=== PATIENT | male | born 1960 | race Caucasian/White ===

== ENCOUNTER 2019-03-09 09:01 | Inpatient (IN) ==
--- NOTE | 2019-03-02 13:43 | Anesthesiology Consultation ---
Date of Service March 02, 2019 Assessment & Plan (1) Encounter for pre-operative examination: Chart Review Chart Review: Acceptable Risk for Surgery and Patient NOT seen in Pre Admission Testing History Surgery Operation Date: 03/09/19 11:10 Proposed Procedures p Robotic Right Video Assisted Thoracoscopy with Pleurectomy - Filemon Moraes MD, FACS Height/Weight Height: 5 ft 9 in Weight: 97.522 kg Allergies Allergy/AdvReac Type Severity Reaction Status Date / Time adhesive Allergy Unknown EKG Verified 02/23/19 13:40 MONITOR PADS-RED RASH ITCHY meperidine Allergy Unknown nausea and Verified 02/23/19 13:40 vomiting albuterol AdvReac Unknown TACHYCARDIA Verified 02/23/19 13:40 Medications Home Medications Medication Instructions Recorded Confirmed Last Taken aspirin 81 mg PO QAM 02/23/19 02/23/19 Unknown atenolol 50 mg PO QAM 02/23/19 02/23/19 Unknown flecainide 50 mg PO Q12H 02/23/19 02/23/19 Unknown gabapentin 800 mg PO TID 02/23/19 02/23/19 Unknown ibuprofen 800 mg PO TID PRN 02/23/19 02/23/19 Unknown levalbuterol HCl 1.25 mg INHALATION TID PRN 02/23/19 02/23/19 Unknown levalbuterol tartrate [Xopenex HFA] 1 puff INHALATION Q4H PRN 02/23/19 02/23/19 Unknown montelukast [Singulair] 10 mg PO QAM 02/23/19 02/23/19 Unknown tiotropium bromide [Spiriva 1 puff INHALATION QPM 02/23/19 02/23/19 Unknown Respimat] Past Medical History Medical History Atrial fibrillation DX YEARS AGO - ON ASA, FLECAINIDE - FOLLOWS W/ DR. 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 History of bronchoscopy History of cervical spinal surgery X 2 - NO ROM RESTRICTIONS PER PT History of colonoscopy History of esophagogastroduodenoscopy (EGD) History of right knee surgery History of shoulder surgery BL History of spinal surgery LUMBAR SPINE X 2 History of surgical removal of ganglion cyst History of tonsillectomy Nausea and vomiting after administration of anesthetic agent S/P plication of diaphragm Status post placement of implantable loop recorder Past Anesthesia History Difficult Airway (H/O GLIDESCOPE) 05/07/15 L shoulder scope = GLIDESCOPE #4, ETT 7.5, grade view I. Cords clear, atraumatic x 1 attempt. Social History Smoking Status: Never smoker Do You Dip or Chew Tobacco: No Hx Alcohol Use: Yes Alcohol type: beer alcohol intake frequency: holidays/special occasions only Hx Substance Use: No substance use type: does not use Testing Laboratory Results 01/28/19 WBC: 5.5 H/H: 15.5/45.5 PLATELETS: 277 SODIUM: 138 POTASSIUM: 4.1 CHLORIDE: 105 CO2: 27 BUN: 13 CREATININE: 95 GLUCOSE: 95 PT: 9.3 PTT: 28 INR: 0.97 UA: negative Electrocardiogram Date: 07/08/18 Sinus rhythm at 74bpm. Intra-atrial conduction delay. *artifact in part of recording. Patient had subsequent echo and stress, see below. Chest X-Ray Date: 01/28/19 Interval development of wedge-shaped abnormality lower right hemithorax. CT follow-up suggested.* *see CT below Echocardiogram Date: 08/09/18 EF: 55-60% Mild left ventricular hypertrophy. Normal wall motion. Normal left ventricular systolic function. Mild mitral regurgitation, mild tricuspid regurgitation, trace pulmonic insufficiency. Borderline pulmonary hypertension. There is normal left ventricular diastolic function. Stress Test Date: 02/25/19 Type: nuclear Based upon EKG criteria, this test is negative. Based upon the nuclear imaging findings there is no evidence of myocardial ischemia or infarction. Study is normal. It is comparable to previous studies. Cardiac clearance for this patient is a low to moderate cardiac risk. Other Testing 01/28/[address] No CT evidence of pulmonary embolism. Nodular thickening of the pleura in the lower right chest along with pleural effusion. Pleural-based malignancy cannot be ruled out. Chronic areas of nodular pleural-based calcification noted along right hemidiaphragm.
[~2019-03-09 09:01] MED LIST: LR 15ML/HR IV SCH
[2019-03-09] MEDS ORDERED: fentaNYL citrate 100 MCG/2 ML VIAL ONE ×3 (10:23→15:33)
[2019-03-09] MEDS ORDERED: MIDAZOLAM HCL 1 MG/ML 2ML VIAL ONE (10:23)
[2019-03-09] MEDS ORDERED: SCOPOLAMINE 1.5 MG TDSY TD ONE (11:15)
[2019-03-09] MEDS ORDERED: SCOPOLAMINE 1.5 MG TDSY ONE (11:17)
[2019-03-09] MEDS ORDERED: ePHEDrine sulfate 50 MG/ML AMP IV PRN (11:17)
[2019-03-09] MEDS ORDERED: ATROPINE SULFATE 0.1 MG/ML 10ML SYR IV PRN (11:17)
[2019-03-09] MEDS ORDERED: ONDANSETRON INJ 2 MG/ML 2 ML VIAL IV PRN ×2 (11:17→17:19)
--- NOTE | 2019-03-09 11:29 | History & Physical Bridge Note ---
Date of Service March 09, 2019 History & Physical Bridge Note I have examined the patient, reviewed the History & Physical and in the interval since the performance of the History & Physical I have noted the following changes of clinical significance: no changes noted
[2019-03-09] MEDS ORDERED: SODIUM CHLORIDE 0.9% PF 50 ML VIAL ONE (11:40)
[2019-03-09] MEDS ORDERED: BUPIVACAINE 0.5 % 5 MG/1 ML MPF 30ML VIAL ONE (11:40)
[2019-03-09] MEDS ORDERED: BUPIVACAINE LIPOSOME 1.3% 266 MG/20 ML VIAL ONE (11:41)
[2019-03-09] MEDS ORDERED: CEFAZOLIN 250 MG/ML 1 GM VIAL ONE (11:42)
[2019-03-09] MEDS ORDERED: ROCURONIUM BROMIDE 10 MG/ML 5 ML VIAL ONE ×7 (11:42→14:34)
[2019-03-09] MEDS ORDERED: LIDOCAINE HCL 2% 2 ML VIAL/AMP(20MG/ML) INFIL ONE (11:42)
[2019-03-09] MEDS ORDERED: PROPOFOL IV EMULSION 10 MG/ML 20 ML VIAL IV ONE (11:42)
[2019-03-09] MEDS ORDERED: CEFAZOLIN 2000MG 2,000 MG/15 ML SYR IV ONE (13:18)
[2019-03-09] MEDS ORDERED: PHENYLEPHRINE HCL 10 MG/ML VIAL ONE (13:19)
[2019-03-09] MEDS ORDERED: PHENYLEPHRINE 100MCG/ML 5ML SYR ONE (13:19)
[2019-03-09] MEDS ORDERED: ONDANSETRON INJ 2 MG/ML 2 ML VIAL ONE ×2 (13:19→14:57)
[2019-03-09] MEDS ORDERED: DEXAMETHASONE SOD INJ 4 MG/ML VIAL ONE (13:19)
[2019-03-09] MEDS ORDERED: NEOSTIGMINE METHYLSULFATE 5 MG/5 ML SYR ONE (14:34)
[2019-03-09] MEDS ORDERED: GLYCOPYRROLATE 0.2 MG/ML VIAL ONE (14:34)
--- NOTE | 2019-03-09 15:19 | Post Operative Brief Note ---
Immediate Post Op Note v1 Date of Surgery March 09, 2019 Pre & Post Diagnosis Operation Date: 03/09/19 11:10 Pre-Op Diagnosis: Right Pleural Thickening Post-Op Diagnosis: Right Pleural Thickening - No apparent malignancy Procedure Operation Date: 03/09/19 11:10 Actual Procedures p Right Video Assisted Thoracoscopy with Pleurectomy Wedge biopsy right Lower Lobe(Right) - Filemon Moraes MD, FACS Surgeon Filemon Moraes MD, FACS Plastic Surgery Specialist [facility] Estimated Blood Loss 150 Findings Consistent with Post-Op Diagnosis Drains Chest Tube and Ivy Catheter
[2019-03-09] MEDS ORDERED: METOCLOPRAMIDE HCL INJ 5 MG/ML 2 ML VIAL IV ONE (15:40)
--- NOTE | 2019-03-09 15:55 | XRay Report ---
XR chest 1V portable HISTORY: 58 years-old Male pleurectomy postoperative changes of the right lung. COMPARISON: CTA of the chest 01/28/2019 TECHNIQUE: Portable AP view of the chest FINDINGS: Cardiac silhouette is enlarged, unchanged. A loop recorder device projects over the left chest. Pulmo nary vascular congestion. Suggestion of trace pleural effusions with bibasilar opacities. A right-greg ed chest tube terminates adjacent to the right lung apex. A small right-sided apical pneumothorax is noted, pleural separation of 1.2 cm. Degenerative changes of the shoulders and spine. IMPRESSION: 1. Small right apical pneumothorax with right-sided chest tube terminating adjacent to the right lung apex. 2. Cardiomegaly with pulmonary vascular congestion. 3. Suggestion of trace pleural effusions with bibasilar opacities. The above report was generated using voice recognition software. It may contain grammatical, syntax o r spelling errors. Electronically signed by: Gilles Valentin M.D. 03/09/2019 3:53 PM
[2019-03-09] MEDS: fentaNYL citrate 100 MCG/2 ML VIAL IV PRN ×2 (16:00→16:15)
--- NOTE | 2019-03-09 16:07 | Anesthesiology Progress Note ---
Date of Service March 09, 2019 Anesthesia Post Procedure Vital Signs Vital Signs: Temp Pulse Pulse Resp BP Pulse Ox 03/09/19 15:37 36.0 C L 66 18 99/58 L 97 03/09/19 09:34 36.2 C L 70 18 136/78 97 Pain Intensity Right Chest: Pain Intensity: 3 Transfer of Care Handoff Completed per policy Notes Mental Status: alert / awake / arousable Patient Amnestic to Procedure: Yes Nausea / Vomiting: adequately controlled Pain: adequately controlled Airway Patency, RR, SpO2: stable & adequate BP & HR: stable & adequate Hydration State: stable & adequate Anesthetic Complications: no major complications apparent
[2019-03-09] MEDS ORDERED: LEVALBUTEROL TARTRATE 15 GM HFA.AER.AD INH PRN (17:19)
[2019-03-09] MEDS ORDERED: MoRPHine SULFATE 2 MG/ML CARP IV PRN (17:19)
[2019-03-09] MEDS ORDERED: LEVALBUTEROL HCL 1.25 MG/3 ML NEB INH PRN (17:19)
[2019-03-09] MEDS: CHECK SCOPOLAMINE PATCH PLACEMENT SCH ×2 (17:52→23:50)
[2019-03-09] MEDS: D5W AND 1/2NSS 1,000 ML IV SCH (17:52)
[2019-03-09] MEDS: ACETAMINOPHEN 1,000 MG/100 ML VIAL IV SCH (17:53)
[2019-03-09] MEDS: KETOROLAC TROMETHAMINE 15 MG/ML VIAL IV PRN ×2 (17:53→23:51)
[2019-03-09 18:19] LABS: Creatinine Clr Calc Pharmacy 94.3 ml/min; Est GFR (African American) 97.6; Est GFR (Non-African American) 84.2
[2019-03-09 18:25] LABS: Prothrombin Time 10.3 Seconds (9.0-12.0)
[2019-03-09] MEDS: OXYCODONE HCL IR 5 MG TAB (IMMEDIATE RELEASE) PO PRN (20:22)
[2019-03-09] MEDS ORDERED: COUGH DROP (SUGAR FREE) LOZ 24 LOZ/1 BOX BUCCAL PRN (20:26)
--- NOTE | 2019-03-09 20:27 | Operative Report ---
DATE OF OPERATION: 03/09/2019 PREOPERATIVE DIAGNOSIS: Pleural thickening with chest pain suspicious for malignancy. POSTOPERATIVE DIAGNOSIS: No apparent malignancy. PROCEDURE: 1. Right thoracoscopy with partial pleurectomy and lung biopsy. 2. Extensive takedown of adhesions. ANESTHESIA: General anesthesia, endotracheal intubation. SURGEON: Filemon Moraes MD. SUGAR SAMPLER: DHEERAJ Willson (Mr. Maynard was present for the entire case and was instrumental holding the camera). SPECIFICS OF PROCEDURE AND FINDINGS: Michael James is a very nice 58-year-old male actually has a fairly significant history for being such a young man. He had a paralyzed right hemidiaphragm from the cervical neck surgery and also had a winged scapula on the right. His paralyzed diaphragm was repaired at [facility] years ago via right thoracotomy. He also has a history of atrial fibrillation, chronic obstructive pulmonary disease, degenerative disk disease, osteoarthritis, and obesity. The patient presented to me because he had increased pain in his right chest. A CT scan showed thickening which is a bit unusual and did not appear to be fluid. The patient seen and evaluated by Colt Lennon from the pulmonary division and he was worried about this and I agree with him. The patient did have asbestos exposure. 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 The patient presents with this rather subacute onset of pain and was very concerned "that I might have mesothelioma." I did not think a pleural biopsy was going to be helpful or fruitful. I felt that by a thoracoscopic biopsy of his pleura be indicated. We discussed doing this with a robot. However, when we got in there and he had such adhesions. We went ahead and proceeded thoracoscopically. He tolerated it well with very little in the way of blood loss. We did multiple biopsies, did a partial pleurectomy. We also did a lung biopsy of an area of the lung attached to the chest wall. We took down everything all the way down to the diaphragm and I really did not see anything that looked like a mesothelioma. Frozen section showed fibrotic material. We did send off a fair amount of tissue. He tolerated it well, was extubated in the room with essentially no air leak. DESCRIPTION OF PROCEDURE: The patient brought to operating room and laid in supine position. General anesthesia induced, endotracheal intubation performed with a double lumen tube. The patient was placed in left lateral decubitus position, right chest prepped and draped in usual sterile fashion. I initially planned to use a robot, bringing up from caudal so we could work along the diaphragm. However, once we got in and I was looking at the prior thoracotomy incision, I felt we would go in and see what we had. A 5 mm scope was placed in about the seventh interspace anterior just above the costal margin and we got into the area well. I then could see that we did have adhesions inferiorly where the pleura was thickened, which did not surprise me; however, we had enough area to put our ports. I put a 12 mm camera port close to the mid axillary line. This was about the seventh interspace. I also put a 5 mm port posterior to the scapula to get into the space. We then meticulously took down adhesions with the hook cautery and we managed to get this down, but we were working inferiorly. We continued going until we had taken this entire area down. We did do an Exparel block. 266 mg of Exparel and 20 mL of solution were mixed with 30 mL of 0.5% bupivacaine and 250 mL of normal saline injected into each of the 3 port sites. We made a fourth 5 mm port site inferiorly after we had freed up much of the adhesions so that we would have better visualization. We then used this Exparel to do a block from the 2nd to the 11th rib by injecting into the intercostal spaces. The pleura was thickened and we did take down a fair amount of it and sent it off to the lab. We performed a partial pleurectomy. Some of it was still stuck to the lung and I did a wedge resection of a portion of this with a stapler. I then irrigated out the chest and I really did not have much in the way of bleeding. We did get some bleeding along the chest wall which was addressed with the Aquamantys. He had multiple small air leaks from taking the lung down. Diaphragm was quite sensitive to cautery and contracted quite vigorously when stimulated. We took down all the adhesions and then irrigated out the chest with warm saline and inspected for air leaks as well as any bleeding. We suctioned this out and I was quite pleased. Lung expanded nicely. We placed a 24-Green[place]ic chest tube through the anterior most port directed towards the apex and sutured in place with heavy silk suture. The 12 mm camera port was closed with a 0 Vicryl and for the muscle layers. 4-0 Monocryl was used to close all the incisions and a heavy silk was used to anchor the chest tube in place. The patient tolerated well, was extubated in the room. I attest to the content of the Intraoperative Record and any orders documented therein. Any exception s are noted below.
[2019-03-09] MEDS ORDERED: COUGH DROP (SUGAR FREE) LOZ 24 LOZ/1 BOX BUCCAL ONE (20:36)
[2019-03-09] MEDS ORDERED: TIOTROPIUM BROMIDE 5 PUFF/90 MCG INH INH SCH (21:00)
[2019-03-09] MEDS: FLECAINIDE ACETATE 100 MG TABLET PO SCH (21:33)
[2019-03-09] MEDS: DOCUSATE SODIUM 100 MG CAP PO SCH (21:35)
[2019-03-09] MEDS: GABAPENTIN 800 MG TAB PO SCH (21:42)
[2019-03-09] MEDS: METOCLOPRAMIDE HCL INJ 5 MG/ML 2 ML VIAL IV SCH (23:50)
[2019-03-10] MEDS: ACETAMINOPHEN 1,000 MG/100 ML VIAL IV SCH ×2 (02:05→10:19)
[2019-03-10] MEDS: D5W AND 1/2NSS 1,000 ML IV SCH (03:06)
[2019-03-10 06:03] LABS: Eosinophils # (auto) 0.01 K/uL (0-0.5); Eosinophils % (auto) 0.1 %; Hematocrit (blood only) 36.7 % (42-52); Hemoglobin 12.2 g/dL (14.0-18.0); Immature Granulocytes # (auto) 0.03 K/uL (0.00-0.02); Immature Granulocytes % (auto) 0.3 %; Lymphocytes # (auto) 1.22 K/uL (1.2-3.4); Lymphocytes % (auto) 10.3 %; Mean Corpuscular Volume 92.2 fL (80-100); Mean Platelet Volume 9.3 fL (7.4-10.4); Monocytes # (auto) 1.11 K/uL (0.11-0.59); Monocytes % (auto) 9.4 %; Neutrophils # (auto) 9.45 K/uL (1.4-6.5); Neutrophils % (auto) 79.9 %; Platelet Count 208 K/uL (130-400); RDW Coefficient of Variation 12.6 % (11.5-14.5); RDW Standard Deviation 42.8 fL (36.4-46.3); Red Blood Count 3.98 M/uL (4.7-6.1); White Blood Count 11.82 K/uL (4.8-10.8)
[2019-03-10 06:04] LABS: Mean Corpuscular Hgb Conc 33.2 g/dL (32-36)
[2019-03-10] MEDS: KETOROLAC TROMETHAMINE 15 MG/ML VIAL IV PRN (06:16)
[2019-03-10 06:27] LABS: BUN Creatinine Ratio 12.9 (10-20); Calcium 7.4 mg/dl (8.5-10.1); Creatinine Clr Calc Pharmacy 81.9 ml/min; Est GFR (African American) 82.3; Potassium 4.5 mmol/L (3.5-5.1)
--- NOTE | 2019-03-10 07:09 | XRay Report ---
SINGLE VIEW CHEST CLINICAL HISTORY: Status post right-sided pleurectomy. FINDINGS: An AP, portable, upright chest radiograph is compared to study dated 03/09/2019 and correlat ed with chest CT dated 01/28/2019. The examination is significantly degraded by portable technique and apical lordotic positioning. An electronic device projects over the left lower chest. The heart is e nlarged. The pulmonary vasculature is noncongested. A right apical chest tube is unchanged in positio n. A trace right apical pneumothorax persists. There is volume loss in the right lung. Pleural fluid is seen in the right lung base. The left lung appears clear. The bony thorax is grossly intact. Sub cutaneous emphysema is noted along the right chest wall. IMPRESSION: 1. A right apical chest tube is unchanged in position. A trace right apical pneumothorax persists. 2. Cardiomegaly without radiographic evidence of congestive failure. 3. Pleural fluid is again seen at the right lung base. Electronically signed by: Kulwinder Smith M.D. 03/10/2019 7:08 AM
--- NOTE | 2019-03-10 07:28 | Progress Note ---
DATE: 03/10/2019 Mr. James is 1 day status post a right pleurectomy and lung biopsy. He does not have an air leak. He has drained very little from his chest tube. He does have some mild chest pain. Not voided in the last several hours. We are going to get him up ambulating, stop his IV and make sure that he is voiding well and taking p.o. and I will probably discharge him later today.
[2019-03-10] MEDS: CHECK SCOPOLAMINE PATCH PLACEMENT SCH (08:13)
[2019-03-10] MEDS: FLECAINIDE ACETATE 100 MG TABLET PO SCH (08:16)
[2019-03-10] MEDS: METOCLOPRAMIDE HCL INJ 5 MG/ML 2 ML VIAL IV SCH (08:17)
--- NOTE | 2019-03-10 08:24 | Anesthesiology Progress Note ---
Date of Service March 10, 2019 Anesthesia Post Procedure Vital Signs Vital Signs: Temp Pulse Pulse Pulse Pulse Resp BP 03/10/19 05:00 37.0 C 73 14 03/10/19 03:00 37.1 C 70 14 03/10/19 01:00 36.9 C 71 14 03/09/19 23:00 37.0 C 75 14 03/09/19 21:17 37 C 87 20 03/09/19 20:10 37 C 84 16 03/09/19 19:02 36.8 C 86 18 03/09/19 18:16 36.8 C 92 H 16 03/09/19 17:37 36.3 C L 80 16 03/09/19 17:00 37.3 C 80 16 03/09/19 16:40 67 17 95/59 L 03/09/19 16:35 69 16 93/55 L 03/09/19 16:31 85 15 100/62 03/09/19 16:30 37.0 C 83 18 03/09/19 16:25 65 16 101/58 L 03/09/19 16:22 64 16 98/62 L 03/09/19 16:20 77 19 03/09/19 16:16 72 17 103/67 03/09/19 16:15 75 23 03/09/19 16:11 66 18 93/62 L 03/09/19 16:10 76 16 03/09/19 16:06 72 15 86/56 L 03/09/19 16:05 71 15 03/09/19 16:00 70 23 101/52 L 03/09/19 15:55 65 17 103/60 03/09/19 15:50 61 20 106/61 03/09/19 15:45 64 16 117/62 03/09/19 15:41 66 12 94/61 L 03/09/19 15:40 65 17 03/09/19 15:38 64 17 99/58 L 03/09/19 15:37 36.0 C L 68 66 13 82/61 L 03/09/19 09:34 36.2 C L 70 18 BP Pulse Ox Pulse Ox 03/10/19 05:00 94/59 L 93 03/10/19 03:00 88/53 L 93 03/10/19 01:00 92/56 L 93 03/09/19 23:00 91/55 L 94 07/10/19 21:17 100/65 96 03/09/19 20:10 94/57 L 94 94 03/09/19 19:02 98/61 L 97 03/09/19 18:16 89/55 L 95 03/09/19 17:37 94/61 L 91 03/09/19 17:00 93/59 L 91 03/09/19 16:40 90 03/09/19 16:35 93 03/09/19 16:31 95 03/09/19 16:30 96 03/09/19 16:25 95 03/09/19 16:22 94 03/09/19 16:20 92 03/09/19 16:16 97 03/09/19 16:15 95 03/09/19 16:11 93 03/09/19 16:10 95 03/09/19 16:06 99 03/09/19 16:05 99 03/09/19 16:00 99 03/09/19 15:55 99 03/09/19 15:50 99 03/09/19 15:45 97 03/09/19 15:41 100 03/09/19 15:40 100 03/09/19 15:38 99 03/09/19 15:37 99/58 L 99 03/09/19 09:34 136/78 97 Notes Mental Status: alert / awake / arousable and participated in evaluation Nausea / Vomiting: adequately controlled Pain: adequately controlled Airway Patency, RR, SpO2: stable & adequate BP & HR: stable & adequate Hydration State: stable & adequate
[2019-03-10] MEDS: DOCUSATE SODIUM 100 MG CAP PO SCH (08:32)
[2019-03-10] MEDS: GABAPENTIN 800 MG TAB PO SCH ×2 (08:32→13:14)
[2019-03-10] MEDS: OXYCODONE HCL IR 5 MG TAB (IMMEDIATE RELEASE) PO PRN (08:35)
[2019-03-10] MEDS ORDERED: ENOXAPARIN INJ 40 MG/0.4 ML SYR SQ SCH (09:00)
[2019-03-10] MEDS ORDERED: ATENOLOL 50 MG TABLET PO SCH (09:00)
[2019-03-10] MEDS ORDERED: ASPIRIN 81 MG ECTAB PO SCH (09:00)
[2019-03-10] MEDS ORDERED: MONTELUKAST SODIUM 10 MG TABLET PO SCH (09:00)
[2019-03-10 09:01] VITALS: TEMP 98.1; O2SAT 97
[2019-03-10 14:25] VITALS: PULSE 87
[2019-03-10 14:43] VITALS: BP 96/60
--- NOTE | 2019-03-11 01:47 | Discharge Summary ---
DISCHARGE DIAGNOSES: 1. Pleural thickening of unknown etiology. 2. Status post exposure to asbestos. 3. Status post diaphragmatic plication on the right side. 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 This was done via thoracotomy. The patient is followed by Colt Lennon and it developed acute pleuritic type right-sided chest pain without evidence of infection. He underwent a CT scan and was noted to have pleural thickening which was quite concerning. 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 After much discussion, we elected to proceed with a pleurectomy for diagnosis. On 03/09/2019, the patient underwent an uncomplicated right thoracoscopy. He had marked adhesions and we took these down. I planned initially to use a robot in this, but the patient's adhesions were such that, and the location along the diaphragm made it more difficult. For this reason, I did thoracoscopically. We had large areas of the thickened pleura that we removed; however, did not look ominous to me. Frozen section showed reactive fibrotic tissue with no evidence of malignancy. We sent off much more. Also did a wedge resection of the right lower lobe lung mass. The patient responded quite well to this. We used an Exparel block and he had excellent pain control. He had no air leak postoperatively. His x-ray looked good. The following morning, there was no air leak. His chest x-ray showed full expansion of the lung with no pleural effusion. His chest tube drained very little. On postop day #1, I removed his chest tube. He is ambulating in the hallway and tolerating a regular diet. He was discharged home on postop day 1 with some tramadol for pain. I will see him back next week to go over the final pathology. He looked quite good upon discharge.
== END 2019-03-10 15:10 | disposition home or self-care (01) | DRG 168 ==
LOC: ASU 09:01 → 3N 15:32

== ENCOUNTER 2021-11-05 05:09 | Observation (INO) ==
--- NOTE | 2021-10-30 13:27 | History & Physical Report ---
Date of Service October 30, 2021 date of surgery: 11/05/21 Procedure: Left Shoulder Tournier Resurfacing vs total shoulder replacement Surgeon: Varun Henderson Assessment & Plan (1) Arthritis of left shoulder region: Plan: Further care discussed with patient and at this point in time has failed conservative measures and would like to proceed with surgical intervention. Plan on discharge will be home with home health physical therapy. DVT prophylaxis with TEDs, SCDs and will also place on aspirin 81 mg p.o. b.i.d. for a month postop. Patient will have follow up appointment in our office two weeks post op for staple/suture removal and re-evaluation. Patient otherwise has no other questions or concerns. The risks and benefits have been discussed including, but not limited to, risk of infection, nerve injury, stiffness, loss of motion, failure to improve, etc. Reasonable outcomes and options of treatment were discussed. An explanation of appropriate alternatives to the procedure that may be advantageous were discussed and their risks and benefits, as well as the risks and benefits of not proceeding with treatment. I offered to answer any additional inquiries concerning the treatment involved. All the patient's questions were answered. The patient is agreeable, understanding of the treatment plan and alternatives, and wishes to proceed with the treatment plan. History of Present Illness Chief Complaint: left shoulder pain Primary Care Provider: Alvaro Rodriguez is a 61 year old male who complains of left shoulder pain, presents for pre-op evaluation. He complains of pain, decreased range of motion and stiffness in his left shoulder. Currently the patient states that the symptoms are moderate-severe and rated as 8/10. The pain is described as aching, sharp and throbbing. The symptoms are aggravated by lifting and daily activities, pain wakes him at night. Prior NSAIDs include IBU and Aleve. he recently had visco sample without relief. he also had prior arthroscopic rotator cuff repair in 2015. Allergies Allergy/AdvReac Type Severity Reaction Status Date / Time adhesive Allergy Unknown EKG Verified 05/16/21 08:42 MONITOR PADS-RED RASH ITCHY,BLISTERS meperidine Allergy Unknown nausea and Verified 05/16/21 08:42 vomiting albuterol AdvReac Unknown TACHYCARDIA Verified 05/16/21 08:42 Home Medications Medication Instructions Recorded Confirmed Type aspirin 81 mg tablet,delayed 81 mg PO QAM 02/23/19 05/16/21 History release atenolol 50 mg tablet 50 mg PO QAM 02/23/19 05/16/21 History flecainide 50 mg tablet 50 mg PO Q12H 02/23/19 05/16/21 History gabapentin 800 mg tablet 800 mg PO TID 02/23/19 05/16/21 History ibuprofen 800 mg tablet 800 mg PO TID PRN 02/23/19 05/16/21 History levalbuterol HCl 1.25 mg/3 mL 1.25 mg INHALATION TID PRN 02/23/19 05/16/21 History solution for nebulization tiotropium bromide 2.5 1 puff INHALATION QPM #4 g 05/08/20 05/16/21 Rx mcg/actuation mist for inhalation (Spiriva Respimat) Incentive Spirometer #1 ea 04/11/21 04/11/21 Rx Past Med/Surg History Medical History Atrial fibrillation DX YEARS AGO - NO ISSUES X YEARS- HAD LOOP RECORDER PLACED AND SINCE REMOVED- NO A FIB NOTED- ON ASA, FLECAINIDE - FOLLOWS W/ DR. 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 History of bronchoscopy History of cervical spinal surgery X 2 - NO ROM RESTRICTIONS PER PT 2003, 2012 History of colonoscopy History of esophagogastroduodenoscopy (EGD) History of hand surgery (~1995) BL cyst removal History of hand surgery Tendon repair of left hand History of lung surgery FIBROUS TUMOR-03/2019?-RIGHT SIDE History of right knee surgery (~1988) History of shoulder surgery R/L right 1989, left 2016 History of spinal surgery LUMBAR SPINE X 2 2011, 2013 History of surgical removal of ganglion cyst History of tonsillectomy (~1966) Lipoma REMOVAL OF Nausea and vomiting after administration of anesthetic agent S/P plication of diaphragm (~10/2008) [facility] Status post placement of implantable loop recorder AND REMOVAL Family History Father Family hx of colon cancer Heart disease Mother Stroke Heart disease Social History Smoking Status: Never smoker Second Hand Exposure: No; Hx Alcohol Use: Yes Alcohol type: beer Hx Substance Use: No Preferred Language: Turkmen Communication Ability: Effective Pens And Pencils Dipper Required: No Beliefs That Will Affect Care: None marital status: Current Living Situation: Spouse and Family current occupational status: 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 Safe at Home: Yes Assistive Devices: Walker Review of Systems Review of Systems: All systems reviewed & are unremarkable except as noted in HPI & below Constitutional: no fever, no chills and no sweats Respiratory: no cough and no dyspnea Cardiovascular: no chest pain, no dyspnea and no orthopnea Gastrointestinal: no abdominal pain, no nausea and no vomiting Musculoskeletal: as per Subjective / HPI Physical Exam Constitutional: WD/WN, vitals as above no acute distress Respiratory: normal respiratory effort, lungs clear to auscultation no respiratory distress, no labored breathing and does not use accessory muscles Cardiovascular: RRR, no murmur, no edema Gastrointestinal (Abdomen): normal bowel sounds, soft, nontender, no hepatosplenomegaly Musculoskeletal: Left Shoulder Physical Exam there is no ecchymosis or erythema noted, positive crepitation with active motion, Tenderness anterior aspect shoulder, subacromial space and the AC joint. Belly press - Positive. Rodríguez Positive. Cross Body Positive. Neer's - positive. Strength tests - External rotation 4/5, Supraspinatus 4/5 no atrophy Left shoulder ROM Active ROM - Flexion: 120 degrees, Ext Rot 90 Flex: 30 degrees, Abduction: 45 degrees, Factors: pain, Description: Pain with ROM. Passive ROM - Flexion 170 degrees, ER at 90 de degrees, pain with end range passive ROM. Neurovascular- Radial pulse palpable, radial/median/ulnar nerves intact. Elbow- full painless range of motion, no tenderness. Results & Data Results & Data ([place]) Diagnostic Findings left shoulder series showing degenerative changes noted to the left glenohumeral joint. joint space narrowing and osteophytes present. no acute bony pathology.
--- NOTE | 2021-11-01 14:16 | Anesthesiology Consultation ---
Date of Service November 01, 2021 Assessment & Plan (1) Encounter for pre-operative examination: Chart Review Chart Review: Acceptable Risk for Surgery (pending preop Covid testing results ) and Patient NOT seen in Pre Admission Testing Difficult intubation (see VATS procedure below on 03/09/19) Does have SOB/anxiety with laying flat on back- hx of phrenic nerve damage nursing assessment 10/31/21, patient denies any recent travel. No known Covid positive contacts or Covid related symptoms. No known Covid infection in the past 90 days. Pt is fully vaccinated for Covid. Preop Covid testing 11/01/21= results pending Per cardio surgical risk note 05/30/21=Pt is"low to intermediate cardiac risk." Last seen by cardiology 05/09/2021= patient seen for follow-up visit. Describes nonprogressive mild to moderate dyspneanoticed years ago. Palpitations rare. Continue current medications as prescribed. Doing well from a cardiac standpoint. No new or worsening symptoms. Follows with pulmonology for history of Covid, asbestos exposure and hemidiaphragmatic fundoplication. Will order echo at next visit. Pt seen by PCP 05/28/21=Pt seen for preop for left shoulder surgery. History of paralyzed right diaphragm following neck surgery. Brief history of A. fib 8 years agonone since that time. Still gets shortness of breath and congestion in the AM but able to walk on level and can do 1-2 flights of stairs with mild dyspnea. Patient was recently seen by cardiology and pulmonology. "Medically stable. Moderate increased risk due to restrictive lung disease and PAF."Has significant restrictive lung disease, discussed pulmonary toilet postop. Would watch rhythm periop for a fib. Last seen by pulmonary 04/08/2021= seen for follow-up on cough, COPD, paralyzed diaphragm. "At this time he is stable. He is not having any difficulty with his breathing. He does have a history of a paralyzed hemidiaphragm with plication. Became paralyzed with a thoracic back procedure. He did have a plication done and has been doing well for the most part since. For now he is to continue his medications as they are." Right VATS with pleurectomy 03/09/19= Done under [place]. smooth IV induction. EZ mask. DVL with Glidescope Grade IV view, unable to pass IAN. DVL x 1 with MAC 3, Grade 1 view unable to pass IAN. Pt intubated with single lumen 8.0CH to ventilate. BECKER agent on. Tube exchanger used and unable to pass IAN. Pt intubated again with single lumen and bougie used to pass IAN successfully into trachea. History Surgery Operation Date: 11/05/21 09:30 Proposed Procedures p Left Shoulder Tournier Resurfacing vs - Varun Henderson DO s Hemiarthroplasty - Varun Henderson DO Height/Weight Height: 5 ft 9 in Weight: 97.069 kg Allergies Allergy/AdvReac Type Severity Reaction Status Date / Time adhesive Allergy Unknown EKG Verified 10/31/21 10:26 MONITOR PADS-RED RASH ITCHY,BLISTERS meperidine Allergy Unknown nausea and Verified 10/31/21 10:26 vomiting albuterol AdvReac Unknown TACHYCARDIA Verified 10/31/21 10:26 Medications Home Medications Medication Instructions Recorded Confirmed Last Taken aspirin 81 mg tablet,delayed 81 mg PO QAM 02/23/19 10/31/21 03/04/19 release atenolol 50 mg tablet 50 mg PO QAM 02/23/19 10/31/21 03/08/19 17:00 flecainide 50 mg tablet 50 mg PO Q12H 02/23/19 10/31/21 03/09/19 08:00 gabapentin 800 mg tablet 800 mg PO TID 02/23/19 10/31/21 03/09/19 08:00 ibuprofen 800 mg tablet 800 mg PO TID PRN 02/23/19 10/31/21 03/06/19 levalbuterol HCl 1.25 mg/3 mL 1.25 mg INHALATION TID PRN 02/23/19 10/31/21 03/04/19 solution for nebulization tiotropium bromide 2.5 1 puff INHALATION QPM #4 g 05/08/20 10/31/21 Unknown mcg/actuation mist for inhalation (Spiriva Respimat) Incentive Spirometer #1 ea 04/11/21 04/11/21 Unknown Past Medical History Medical History Atrial fibrillation DX YEARS AGO - NO ISSUES X YEARS- HAD LOOP RECORDER PLACED AND SINCE REMOVED- NO A FIB NOTED- ON ASA, FLECAINIDE - FOLLOWS W/ DR. 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 History of bronchoscopy History of cervical spinal surgery X 2 - NO ROM RESTRICTIONS PER PT 2003, 2013 History of colonoscopy History of esophagogastroduodenoscopy (EGD) History of hand surgery (~1995) BL cyst removal History of hand surgery Tendon repair of left hand History of lung surgery FIBROUS TUMOR-03/2019?-RIGHT SIDE History of right knee surgery (~1988) History of shoulder surgery R/L right 1988, left 2015 History of spinal surgery LUMBAR SPINE X 2 2011, 2013 History of surgical removal of ganglion cyst History of tonsillectomy (~1966) Lipoma REMOVAL OF Nausea and vomiting after administration of anesthetic agent S/P plication of diaphragm (~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) [facility] Status post placement of implantable loop recorder AND REMOVAL Social History Smoking Status: Never smoker Do You Dip or Chew Tobacco: No (h/o - quit) Hx Alcohol Use: Yes Alcohol type: beer alcohol intake frequency: a few times a week Hx Substance Use: No substance use type: does not use Lab Results Anesthesia Preop Results Results Anesthesia Widget: WBC 7.05 K/uL (4.8-10.8) 11/01/21 Hgb 15.8 g/dL (14.0-18.0) 11/01/21 Hct 46.0 % (42-52) 11/01/21 Plt 283 K/uL (130-400) 11/01/21 Na 139 mmol/L (136-145) 11/01/21 K 4.0 mmol/L (3.5-5.1) 11/01/21 Cl 103 mmol/L (98-107) 11/01/21 CO2 29 mmol/L (21-32) 11/01/21 BUN 11 mg/dl (6-23) 11/01/21 Creat 0.83 mg/dl (0.6-1.4) 11/01/21 Glucose Level 95 mg/dl (70-99(Fasting)) 11/01/21 PT 9.9 Seconds (9.0-12.0) 11/01/21 PTT 28.3 Seconds (21.0-31.0) 11/01/21 INR 0.9 (0.9-1.1) 11/01/21 HA1c 5.2 % (4.5-5.6) 11/01/21 Urine Color Yellow 11/01/21 Urine Appearance Clear (Clear) 11/01/21 Urine pH 6.0 (4.5-7.5) 11/01/21 Urine Specific Margaret 1.007 (1.000-1.030) 11/01/21 Urine Protein Negative (Negative) 11/01/21 Urine Glucose (UA) Negative (Negative) 11/01/21 Urine Ketones Negative (Negative) 11/01/21 Urine Blood Negative (Negative) 11/01/21 Urine Nitrite Negative (Negative) 11/01/21 Urine Bilirubin Negative (Negative) 11/01/21 Urine Urobilinogen Negative (Negative) 11/01/21 Urine Leukocyte Esterase Negative (Negative) 11/01/21 Testing Electrocardiogram Date: 05/22/21 Findings: + NSR @ (83bpm) Normal EKG per cardio. Chest X-Ray Date: 05/22/21 Findings: + NAD Echocardiogram Date: 10/13/19 EF: 60% LV Function: normal RWMA: + none Other Findings: + diastolic dysfunction (Grade 1); no LVH Mild biatrial enlargement. Mild RV enlargement. Trace to mild MR/TR Normal pulmonary artery pressuresPASP 26-31 mmHg. Stress Test Date: 02/25/19 Type: nuclear Based upon EKG criteria, this test is negative. Based upon the nuclear imaging findings there is no evidence of myocardial ischemia or infarction. Study is normal. It is comparable to previous studies. Pulmonary Function Test Date: 04/23/21 Nonspecific spirometry. Significant post BD response. Lung volumes suggest restriction. DLCO mildly reduced but corrects for DL/VA. Clinical correlation required.
[2021-11-05] MEDS ORDERED: TRANEXAMIC ACID 1,000 MG **IV Intra-op IV SCH (06:00)
[2021-11-05] MEDS ORDERED: GABAPENTIN 600 MG DOSE PO SCH (06:00)
[2021-11-05] MEDS ORDERED: oxyCODONE HCL 10 MG TABCR (OxyCONTIN) PO SCH (06:00)
[2021-11-05] MEDS ORDERED: METOCLOPRAMIDE HCL 10 MG TABLET PO SCH (06:00)
[2021-11-05] MEDS ORDERED: TRANEXAMIC ACID 1,000 MG **IV Pre-op IV SCH (06:00)
[2021-11-05] MEDS ORDERED: LR 15ML/HR IV SCH (06:00)
[2021-11-05] MEDS ORDERED: CeleBREX 200 MG CAP PO SCH (06:00)
[2021-11-05] MEDS ORDERED: ACETAMINOPHEN 500 MG TAB PO SCH (06:00)
[2021-11-05] MEDS ORDERED: ceFAZolin 2000MG 2,000 MG/15 ML SYR IV SCH (06:00)
[2021-11-05] MEDS ORDERED: FAMOTIDINE 20 MG TAB PO SCH (06:00)
[2021-11-05] MEDS ORDERED: BUPIVACAINE 0.5 % 5 MG/1 ML PF 10ML VIAL ONE (06:22)
[2021-11-05] MEDS ORDERED: SCOPOLAMINE 1 MG TDSY TD ONE (06:44)
[2021-11-05] MEDS ORDERED: fentaNYL citrate 100 MCG/2 ML VIAL ONE (06:48)
[2021-11-05] MEDS ORDERED: MIDAZOLAM HCL 1 MG/ML 2ML VIAL ONE (06:48)
[2021-11-05] MEDS ORDERED: ROPIVACAINE 0.5% 5 MG/ML 30 ML VIAL ONE (06:54)
[2021-11-05] MEDS ORDERED: ATROPINE SULFATE 0.1 MG/ML 10ML SYR IV PRN (06:59)
[2021-11-05] MEDS ORDERED: fentaNYL citrate 100 MCG/2 ML VIAL IV PRN (06:59)
[2021-11-05] MEDS ORDERED: ONDANSETRON INJ 2 MG/ML 2 ML VIAL IV PRN ×3 (06:59→10:18)
[2021-11-05] MEDS ORDERED: ePHEDrine sulfate 50 MG/ML AMP IV PRN (06:59)
[2021-11-05] MEDS ORDERED: PROMETHAZINE HCL 6.25 MG in SODIUM CHLORIDE 0.9% 50 ML IV PRN (06:59)
--- NOTE | 2021-11-05 07:20 | History & Physical Bridge Note ---
Date of Service November 05, 2021 History & Physical Bridge Note I have examined the patient, reviewed the History & Physical and in the interval since the performance of the History & Physical I have noted the following changes of clinical significance: no changes noted
[2021-11-05] MEDS ORDERED: ONDANSETRON INJ 2 MG/ML 2 ML VIAL ONE (08:04)
[2021-11-05] MEDS ORDERED: DEXAMETHASONE SOD INJ 4 MG/ML VIAL ONE (08:04)
--- NOTE | 2021-11-05 08:56 | Operative Report ---
Post Operative Report Pre & Post Diagnosis Operation Date: 11/05/21 07:00 Pre-Op Diagnosis: Left Shoulder Osteoarthritis Post-Op Diagnosis: Left Shoulder Osteoarthritis I identified the patient and participated in the time-out.: Yes Procedure Operation Date: 11/05/21 07:00 Actual Procedures p Left Shoulder Tournier Resurfacing utilizing 46 x 17 resurfacing Tournier arthroplasty Varun Henderson DO Surgeon Varun Henderson DO Collet Making Machine Operator Nuno ESQUEDA Estimated Blood Loss 10 Findings Consistent with Post-Op Diagnosis Patient presents with DJD left glenohumeral joint with osteophytes involving the humeral head eburnated bone on the humeral head the articular cartilage of the glenoid was in satisfactory condition Specimens Bone and cartilage Drains Medium bore Hemovac Anesthesia Type General Regional Complications none Disposition Accompanied Patient To Recovery: No Disposition: Recovery Room Indications Patient presents after failed attempt conservative management with a corticosteroid injection relative rest activity modification patient has DJD left shoulder painful nonresponse to conservative management Description of Procedure After proper prepping and draping of the left shoulder region and incision in the deltopectoral interval was made dissection was carried down to the region of the deltopectoral interval the cephalic vein was retracted lateralward with the deltoid muscle dissection was carried down to the region of the anterior subscapularis subscapularis was reflected off the anterior aspect of the humerus with special attention paid to protect the biceps tendon at all times after reflection of the subscapularis tendon off the anterior humeral head dissection was carried down to the region of glenohumeral joint the glenohumeral joint was evaluated the articular cartilage of the glenoid was then satisfactory condition there was marked eburnated bone and osteophytes on the humeral head osteophytes were all removed the appropriate sized reamer of a 46 x 17 reverse reamer was used and placed to ream reversed reamed the humeral head subsequently trial was placed excellent stability was noted in all ranges of motion subsequently 3 a #5 FiberWire's were placed through the bony margin of the anterior attachment site of the subscapularis after thorough irrigation debridement lavage of the glenohumeral joint trials were placed socially the final component was tapped into position with the Zavala taper the wound was irrigated with copious muscle sterile saline solution the subscapularis repaired back to the the anterior aspect of the humeral tuberosity of the deltopectoral interval was repaired utilizing #0 Vicryl subcu was closed with 2 and 3-0 Vicryl skin was closed with skin clips a sterile compressive dressing was placed the patient placed in shoulder immobilizer was taken to recovery in stable condition please note Nuno ESQUEDA was an active participant in the case participated in drilling of bony tunnels the reverse reaming and sizing and was an active participant necessary for the caseDue to the complex nature of the procedure, the entire surgery was performed with the operational assistance of [Nuno ESQUEDA The customer marketing assistant, under direct supervision, was involved in the actual performance of all aspects of the surgical procedure including hemostasis, tissue retraction and incision, instrument management, patient positioning, and wound closure. I attest to the content of the Intraoperative Record and any orders documented therein. Any exceptions are noted below.
[2021-11-05] MEDS ORDERED: oxyCODONE HCL IR 5 MG TAB (IMMEDIATE RELEASE) PO PRN (09:14)
--- NOTE | 2021-11-05 09:45 | Anesthesiology Progress Note ---
Date of Service November 05, 2021 Anesthesia Post Procedure Vital Signs Vital Signs: Temp Pulse Pulse Resp BP Pulse Ox 11/05/21 09:35 67 20 139/73 93 11/05/21 09:25 67 22 131/92 98 11/05/21 09:15 66 20 129/73 97 11/05/21 09:08 96.8 F L 70 20 125/92 96 11/05/21 05:30 98.2 F 70 18 128/81 96 Pain Intensity Left Shoulder: Pain Intensity: 3 Transfer of Care Handoff Completed per policy Notes Mental Status: alert / awake / arousable and participated in evaluation Patient Amnestic to Procedure: Yes Nausea / Vomiting: adequately controlled Pain: adequately controlled Airway Patency, RR, SpO2: stable & adequate BP & HR: stable & adequate Hydration State: stable & adequate Anesthetic Complications: no major complications apparent and Pt Satisfied with anesthetic care Notes: subjective SOB post operatively, satting well on RA, equal B/L chest rise, adequate VC on IS.
[2021-11-05] MEDS ORDERED: NALOXONE HCL 0.4 MG/1 ML VIAL/CARP IV PRN (10:18)
[2021-11-05] MEDS ORDERED: SODIUM CHLORIDE 0.9% 1000ML 1,000 ML IV SCH (10:18)
[2021-11-05] MEDS ORDERED: MAGNESIUM HYDROXIDE SUSP 30 ML UDC PO PRN (10:18)
[2021-11-05] MEDS ORDERED: bisacodyL 10 MG SUPP PR PRN (10:18)
--- NOTE | 2021-11-05 10:28 | XRay Report ---
XR shoulder LT min 2V routine CLINICAL HISTORY: Postop left shoulder surgery. COMPARISON STUDY: None. FINDINGS: 2 views of the left shoulder demonstrate resurfacing of the humeral head. The hardware appe ars intact. No acute fracture or dislocation. Skin velia are in place. IMPRESSION: Postoperative changes within the left shoulder. No evidence for hardware complication. ACT 112: Negative or not required by law. Electronically signed by: Ignacio Cox M.D. 11/05/2021 10:27 AM
[2021-11-05] MEDS: FLECAINIDE ACETATE 100 MG TABLET PO SCH ×2 (11:51→22:46)
[2021-11-05] MEDS: GABAPENTIN 800 MG TAB PO SCH ×2 (11:52→21:05)
[2021-11-05] MEDS ORDERED: LEVALBUTEROL HCL 1.25 MG/3 ML NEB INH PRN (13:00)
[2021-11-05] MEDS: ceFAZolin 2000MG 2,000 MG/15 ML SYR IV SCH ×2 (16:52→22:46)
[2021-11-05] MEDS: oxyCODONE HCL IR 5 MG TAB (IMMEDIATE RELEASE) PO PRN ×2 (16:52→21:04)
[2021-11-05] MEDS: ACETAMINOPHEN 500 MG TAB PO PRN (19:54)
[2021-11-05] MEDS ORDERED: UMECLIDINIUM BROMIDE 62.5MCG/BLISTER 7 PUFFS/INHALER INH SCH (21:00)
[2021-11-05] MEDS ORDERED: SENNA 8.6 MG TAB PO SCH (21:00)
[2021-11-05] MEDS: DOCUSATE SODIUM 100 MG CAP PO SCH (21:05)
[2021-11-06] MEDS: oxyCODONE HCL IR 5 MG TAB (IMMEDIATE RELEASE) PO PRN ×3 (03:56→11:45)
[2021-11-06] MEDS: ACETAMINOPHEN 500 MG TAB PO PRN (04:59)
[2021-11-06] MEDS: HYDROmorphone INJ 0.5 MG/0.5 ML SYR IV PRN ×3 (06:02→17:09)
[2021-11-06 06:54] LABS: Basophils # (auto) 0.02 K/uL (0-0.2); Basophils % (auto) 0.2 %; Eosinophils # (auto) 0.02 K/uL (0-0.5); Eosinophils % (auto) 0.2 %; Hematocrit (blood only) 38.9 % (42-52); Hemoglobin 13.3 g/dL (14.0-18.0); Immature Granulocytes # (auto) 0.02 K/uL (0.00-0.02); Immature Granulocytes % (auto) 0.2 %; Lymphocytes # (auto) 1.85 K/uL (1.2-3.4); Lymphocytes % (auto) 15.9 %; Mean Corpuscular Hemoglobin 33.1 pg (25-34); Mean Corpuscular Hgb Conc 34.2 g/dL (32-36); Mean Corpuscular Volume 96.8 fL (80-100); Mean Platelet Volume 9.9 fL (7.4-10.4); Monocytes # (auto) 1.25 K/uL (0.11-0.59); Monocytes % (auto) 10.7 %; Neutrophils # (auto) 8.49 K/uL (1.4-6.5); Neutrophils % (auto) 72.8 %; Platelet Count 242 K/uL (130-400); RDW Coefficient of Variation 12.4 % (11.5-14.5); RDW Standard Deviation 43.8 fL (36.4-46.3); Red Blood Count 4.02 M/uL (4.7-6.1); White Blood Count 11.65 K/uL (4.8-10.8)
[2021-11-06 06:57] LABS: BUN Creatinine Ratio 16.3 (10-20); Calcium 8.8 mg/dl (8.5-10.1); Est GFR (African American) 112.5 ml/min; Est GFR (Non-African American) 97.1 ml/min; Potassium 4.1 mmol/L (3.5-5.1)
[2021-11-06] MEDS: GABAPENTIN 800 MG TAB PO SCH ×2 (08:15→15:02)
[2021-11-06] MEDS: DOCUSATE SODIUM 100 MG CAP PO SCH (08:15)
[2021-11-06] MEDS ORDERED: ASPIRIN 81 MG ECTAB PO SCH (09:00)
[2021-11-06] MEDS ORDERED: MULTIVITAMIN TAB PO SCH (09:00)
[2021-11-06] MEDS ORDERED: ATENOLOL 50 MG TABLET PO SCH (09:00)
--- NOTE | 2021-11-06 09:17 | Orthopedic Progress Note ---
Date of Service November 06, 2021 Assessment & Plan (1) Arthritis of left shoulder region: Plan: POD 1 s/p Left Shoulder Resurfacing PT/OT protocols. NWB FILOMENA. Sling at all times except for bathing and changing clothes. DVT prophylaxis - ASA , SCD's Pain management as written. DC planning - Plan for dc to home today. Admission and Anticipated Discharge Date Admission Date: November 05, 2021 Subjective POD 1 Pt is sitting up in bed awake, alert. Getting ready to start his PT session. States his nerve block wore off last night. Had some initial pain but was relieved with pain meds. This AM he is better but still having some pain. No other complaints at this time. Physical Exam Physical Exam: Dressing C/D/I. Mild ecchymosis noted distal to dressing. Good ROM of wrist/fingers. No residual numbness from the nerve block. Cap refill < [address] Results & Data ([facility]) Vital Signs (Past 12 Hours) Vital Signs Temp Pulse Resp BP Pulse Ox 11/06/21 07:20 36.8 C 78 16 119/70 95 11/06/21 04:09 36.8 C 68 17 110/68 96 11/05/21 22:42 36.6 C 82 17 112/72 93 Laboratory Results Laboratory Results WBC 11.65 K/uL (4.8-10.8) H 11/06/21 06:24 RBC 4.02 M/uL (4.7-6.1) L 11/06/21 06:24 Hgb 13.3 g/dL (14.0-18.0) L 11/06/21 06:24 Hct 38.9 % (42-52) L 11/06/21 06:24 MCV 96.8 fL (80-100) 11/06/21 06:24 MCH 33.1 pg (25-34) 11/06/21 06:24 MCHC 34.2 g/dL (32-36) 11/06/21 06:24 RDW Std Deviation 43.8 fL (36.4-46.3) 11/06/21 06:24 RDW Coeff of Berta 12.4 % (11.5-14.5) 11/06/21 06:24 Plt Count 242 K/uL (130-400) 11/06/21 06:24 MPV 9.9 fL (7.4-10.4) 11/06/21 06:24 Immature Gran % (Auto) 0.2 % 11/06/21 06:24 Neut % (Auto) 72.8 % 11/06/21 06:24 Lymph % (Auto) 15.9 % 11/06/21 06:24 [place] % (Auto) 10.7 % 11/06/21 06:24 Eos % (Auto) 0.2 % 11/06/21 06:24 Baso % (Auto) 0.2 % 11/06/21 06:24 Neut # (Auto) 8.49 K/uL (1.4-6.5) H 11/06/21 06:24 Lymph # (Auto) 1.85 K/uL (1.2-3.4) 11/06/21 06:24 [place] # (Auto) 1.25 K/uL (0.11-0.59) H 11/06/21 06:24 Eos # (Auto) 0.02 K/uL (0-0.5) 11/06/21 06:24 Baso # (Auto) 0.02 K/uL (0-0.2) 11/06/21 06:24 Immature Gran # (Auto) 0.02 K/uL (0.00-0.02) 11/06/21 06:24 Sodium 136 mmol/L (136-145) 11/06/21 06:24 Potassium 4.1 mmol/L (3.5-5.1) 11/06/21 06:24 Chloride 103 mmol/L (98-107) 11/06/21 06:24 Carbon Dioxide 26 mmol/L (21-32) 11/06/21 06:24 Anion Gap 7 (3-11) 11/06/21 06:24 BUN 13 mg/dl (6-23) 11/06/21 06:24 Creatinine 0.80 mg/dl (0.6-1.4) 11/06/21 06:24 Est Cr Clr Drug Dosing 114.0 ml/min 11/06/21 06:24 Est GFR ( Amer) 112.5 ml/min 11/06/21 06:24 Est GFR (Non-Af Amer) 97.1 ml/min 11/06/21 06:24 BUN/Creatinine Ratio 16.3 (10-20) 11/06/21 06:24 Glucose 114 mg/dl (70-99(Fasting)) H 11/06/21 06:24 Calcium 8.8 mg/dl (8.5-10.1) 11/06/21 06:24 SARS-CoV-2, RNA, NAAT NEGATIVE (NEGATIVE) 11/05/21 05:26 Blood Type A Positive 11/05/21 05:23 Antibody Screen NEGATIVE 11/05/21 05:23 Impressions Shoulder X-Ray 11/05/21 09:14 XR shoulder LT min 2V routine CLINICAL HISTORY: Postop left shoulder surgery. COMPARISON STUDY: None. FINDINGS: 2 views of the left shoulder demonstrate resurfacing of the humeral head. The hardware appears intact. No acute fracture or dislocation. Skin velia are in place. IMPRESSION: Postoperative changes within the left shoulder. No evidence for hardware complication. ACT 112: Negative or not required by law. Electronically signed by: Ignacio Cox M.D. 11/05/2021 10:27 AM
[2021-11-06] MEDS ORDERED: KETOROLAC 30 MG/ML VIAL IV ONE (09:37)
[2021-11-06] MEDS: FLECAINIDE ACETATE 100 MG TABLET PO SCH (11:17)
[2021-11-06] MEDS ORDERED: KETOROLAC 30 MG/ML VIAL IV SCH (14:45)
--- NOTE | 2021-11-08 10:37 | Discharge Summary ---
Date of Service November 08, 2021 Admission HPI Per Admitting Provider Michael is a 61 year old male who complains of left shoulder pain, presents for pre-op evaluation. He complains of pain, decreased range of motion and stiffness in his left shoulder. Currently the patient states that the symptoms are moderate-severe and rated as 8/10. The pain is described as aching, sharp and throbbing. The symptoms are aggravated by lifting and daily activities, pain wakes him at night. Prior NSAIDs include IBU and Aleve. he recently had visco sample without relief. he also had prior arthroscopic rotator cuff repair in 2014. Admission Exam Per Admitting Provider Physical Exam Constitutional: WD/WN, vitals as above no acute distress Respiratory: normal respiratory effort, lungs clear to auscultation no respiratory distress, no labored breathing and does not use accessory muscles Cardiovascular: RRR, no murmur, no edema Gastrointestinal (Abdomen): normal bowel sounds, soft, nontender, no hepatosplenomegaly Musculoskeletal: Left Shoulder Physical Exam there is no ecchymosis or erythema noted, positive crepitation with active motion, Tenderness anterior aspect shoulder, subacromial space and the AC joint. Belly press - Positive. Rodríguez Positive. Cross Body Positive. Neer's - positive. Strength tests - External rotation 4/5, Supraspinatus 4/5 no atrophy Left shoulder ROM Active ROM - Flexion: 120 degrees, Ext Rot 90 Flex: 30 degrees, Abduction: 45 degrees, Factors: pain, Description: Pain with ROM. Passive ROM - Flexion 170 degrees, ER at 90 de degrees, pain with end range passive ROM. Neurovascular- Radial pulse palpable, radial/median/ulnar nerves intact. Elbow- full painless range of motion, no tenderness. Principal Diagnosis Left Shoulder Osteoarthritis Discharge Data Allergies Allergy/AdvReac Type Severity Reaction Status Date / Time adhesive Allergy Unknown EKG Verified 11/05/21 05:28 MONITOR PADS-RED RASH ITCHY,BLISTERS meperidine Allergy Unknown nausea and Verified 11/05/21 05:28 vomiting albuterol AdvReac Unknown TACHYCARDIA Verified 11/05/21 05:28 Procedures Performed Operation Date: 11/05/21 07:00 Actual Procedures p Left Shoulder Tournier Resurfacing(Left) - Varun Henderson DO Ordered Studies 11/05/21 05:00 US - OR guided needle placemen Routine Hospital Course (1) Arthritis of left shoulder region: Date of Service November 06, 2021 Assessment & Plan (1) Arthritis of left shoulder region: Plan: POD 1 s/p Left Shoulder Resurfacing PT/OT protocols. NWB LUE. Sling at all times except for bathing and changing clothes. DVT prophylaxis - ASA , SCD's Pain management as written. DC planning - Plan for dc to home today. Admission and Anticipated Discharge Date Admission Date: November 05, 2021 Subjective POD 1 Pt is sitting up in bed awake, alert. Getting ready to start his PT session. States his nerve block wore off last night. Had some initial pain but was relieved with pain meds. This AM he is better but still having some pain. No other complaints at this time. Physical Exam Physical Exam: Dressing C/D/I. Mild ecchymosis noted distal to dressing. Good ROM of wrist/fingers. No residual numbness from the nerve block. Cap refill < [address] Results & Data ([facility]) Vital Signs (Past 12 Hours) Vital Signs Temp Pulse Resp BP Pulse Ox 11/06/21 07:20 36.8 C 78 16 119/70 95 11/06/21 04:09 36.8 C 68 17 110/68 96 11/05/21 22:42 36.6 C 82 17 112/72 93 Laboratory Results Laboratory Results WBC 11.65 K/uL (4.8-10.8) H 11/06/21 06:24 RBC 4.02 M/uL (4.7-6.1) L 11/06/21 06:24 Hgb 13.3 g/dL (14.0-18.0) L 11/06/21 06:24 Hct 38.9 % (42-52) L 11/06/21 06:24 MCV 96.8 fL (80-100) 11/06/21 06:24 MCH 33.1 pg (25-34) 11/06/21 06:24 MCHC 34.2 g/dL (32-36) 11/06/21 06:24 RDW Std Deviation 43.8 fL (36.4-46.3) 11/06/21 06:24 RDW Coeff of Berta 12.4 % (11.5-14.5) 11/06/21 06:24 Plt Count 242 K/uL (130-400) 11/06/21 06:24 MPV 9.9 fL (7.4-10.4) 11/06/21 06:24 Immature Gran % (Auto) 0.2 % 11/06/21 06:24 Neut % (Auto) 72.8 % 11/06/21 06:24 Lymph % (Auto) 15.9 % 11/06/21 06:24 Bartholomew % (Auto) 10.7 % 11/06/21 06:24 Eos % (Auto) 0.2 % 11/06/21 06:24 Baso % (Auto) 0.2 % 11/06/21 06:24 Neut # (Auto) 8.49 K/uL (1.4-6.5) H 11/06/21 06:24 Lymph # (Auto) 1.85 K/uL (1.2-3.4) 11/06/21 06:24 Bartholomew # (Auto) 1.25 K/uL (0.11-0.59) H 11/06/21 06:24 Eos # (Auto) 0.02 K/uL (0-0.5) 11/06/21 06:24 Baso # (Auto) 0.02 K/uL (0-0.2) 11/06/21 06:24 Immature Gran # (Auto) 0.02 K/uL (0.00-0.02) 11/06/21 06:24 Sodium 136 mmol/L (136-145) 11/06/21 06:24 Potassium 4.1 mmol/L (3.5-5.1) 11/06/21 06:24 Chloride 103 mmol/L (98-107) 11/06/21 06:24 Carbon Dioxide 26 mmol/L (21-32) 11/06/21 06:24 Anion Gap 7 (3-11) 11/06/21 06:24 BUN 13 mg/dl (6-23) 11/06/21 06:24 Creatinine 0.80 mg/dl (0.6-1.4) 11/06/21 06:24 Est Cr Clr Drug Dosing 114.0 ml/min 11/06/21 06:24 Est GFR ( Amer) 112.5 ml/min 11/06/21 06:24 Est GFR (Non-Af Amer) 97.1 ml/min 11/06/21 06:24 BUN/Creatinine Ratio 16.3 (10-20) 11/06/21 06:24 Glucose 114 mg/dl (70-99(Fasting)) H 11/06/21 06:24 Calcium 8.8 mg/dl (8.5-10.1) 11/06/21 06:24 SARS-CoV-2, RNA, NAAT NEGATIVE (NEGATIVE) 11/05/21 05:26 Blood Type A Positive 11/05/21 05:23 Antibody Screen NEGATIVE 11/05/21 05:23 Impressions Shoulder X-Ray 11/05/21 09:14 XR shoulder LT min 2V routine CLINICAL HISTORY: Postop left shoulder surgery. COMPARISON STUDY: None. FINDINGS: 2 views of the left shoulder demonstrate resurfacing of the humeral head. The hardware appears intact. No acute fracture or dislocation. Skin velia are in place. IMPRESSION: Postoperative changes within the left shoulder. No evidence for hardware complication. ACT 112: Negative or not required by law. Electronically signed by: Ignacio Cox M.D. 11/05/2021 10:27 AM Total Time Total Time Spent Total Time Spent (In Minutes): 10 Discharge Plan Discharge Items Patient Disposition: Home - Home Health Services Reason For Visit: Left Shoulder Osteoarthritis Discharge Diagnosis: Left Shoulder Osteoarthritis Activity: Per Instructions section Weightbearing: Left non-weightbearing Weightbearing Comment: Use sling at all times except when bathing/changing clothes Non-emergency contact: Surgeon Call non-emergency contact if: your pain is not controlled, your temperature is above 101.5, your wound has increased redness and your wound has increased drainage Follow-up/Referrals: Varun Henderson DO [Surgeon] - 11/18/21 10:20 am (follow up in 10-14 days from the day of surgery) Alvaro De Los Santos [Primary Care Provider] - Diet: Regular Addtl Attending Provider Instructions: ACTIVITY RECOMMENDATIONS: SELF CARE INSTRUCTIONS AFTER TOTAL SHOULDER ARTHROPLASTY A. You may do daily exercises as taught in physical therapy while in hospital. No lifting with the operative arm. Please schedule your outpatient physical therapy appointment to begin within 2-3 days after leaving the hospital. Specific restrictions will be written on your physical therapy prescription that is provided to you. B. You are to wear your sling/immobilizer at all times EXCEPT when performing your daily exercises, participating in physical therapy and for hygiene purposes. C. You may perform dry, daily dressing changes. Please keep your incision covered. You may shower 48 hours after surgery. Do not apply soap or any ointment/lotions directly over incision. Do not soak incision in bath tub/swimming pool. D. You may use ice as needed to operative shoulder. SPECIAL CARE INSTRUCTIONS: MEDICATION INSTRUCTIONS: *It is recommended you take Aspirin 325mg daily for four weeks post-op. VERY IMPORTANT TO READ AND REVIEW A. There are a few signs you need to watch for after you are home. Call [facility] at [phone] if you experience any of the followin. Increased severe shoulder pain. Some pain is expected especially when you exercise. 2. Increased swelling in you shoulder or arm; pain or swelling in either upper extremity. 3. Any fluid drainage from the incision. 4. Shortness of breath or chest pain. B. Please call [facility] at [phone] if you have any questions or concerns about your operation or recovery. C. Call your physician if: 1. Temperature is greater than 101 degrees (F). 2. Pain is not relieved by prescribed pain medications. 3. Increase drainage or redness from incision. 4. Unanswered questions or concerns. FOLLOW UP VISIT: Please call [facility] at [phone] to schedule a follow up appointment with Dr. Henderson or his PA in 12-14 days from your surgery date. Stand-Alone Forms: My [facility] [employer], Opioid Pain Management, Smoking Cessation Medications and DC Order Prescriptions: New acetaminophen [Tylenol Extra Strength] 500 mg Tablet 1,000 mg PO Q8H PRN (Reason: pain) 14 Days Qty: 84 RF: 0 celecoxib [Celebrex] 200 mg capsule 200 mg PO BID PRN (Reason: pain) Qty: 30 RF: 0 oxycodone 5 mg Tablet 5 mg PO Q4H MDD 6 PRN (Reason: pain) Qty: 30 RF: 0 Continued (DME) Incentive Spirometer Misc See Rx Instructions .Route Qty: 1 RF: 0 Spiriva Respimat 2.5 mcg/actuation mist 1 puff INHALATION QPM Qty: 4 RF: 5 aspirin 81 mg Tablet,Delayed Release (Dr/Ec) 81 mg PO QAM RF: 0 gabapentin 800 mg Tablet 800 mg PO TID RF: 0 flecainide 50 mg Tablet 50 mg PO Q12H RF: 0 levalbuterol HCl 1.25 mg/3 mL Solution For Nebulization 1.25 mg INHALATION TID PRN (Reason: SOB) RF: 0 atenolol 50 mg Tablet 50 mg PO QAM RF: 0 Discontinued ibuprofen 800 mg Tablet 800 mg PO TID PRN (Reason: Pain) RF: 0 Discharge Orders: Discharge Order (Routine); Ordered 11/06/21 Ordered By: Nuno Elias/Other Patient Handouts: DVT Post Op Prevention Admission Data Admit Date/Time: 11/05/21 09:32 Attending Provider: Varun Henderson Admit Provider: Varun Henderson Primary Care Provider: Alvaro De Los Santos Other Providers: [facility],Home Healthcare Other Interventions: Discharge Summary Assessment (RN) Last Done: 11/06/21 14:40
== END 2021-11-06 18:02 | disposition home health service (06) ==
LOC: ASU 05:09 → INTOOBSV 09:32 → 3E 09:32

== ENCOUNTER 2025-02-14 11:37 | Inpatient (IN) ==
--- NOTE | 2025-02-14 12:08 | Emergency Department Note ---
ED Provider Note History of Present Illness Chief Complaint: Abdominal Pain Stated Complaint: DIVERTICULITIS, LOWER LT ABD PAIN Time Seen by Provider: 02/14/25 11:46 Source: patient Mode of arrival: ambulatory Limitations: no limitations Patient is a 64-year-old male who presents to the emergency department with complaints of abdominal pain. Patient states that he has had some lower primarily left-sided abdominal pain since last evening and notes some associated diarrhea and nausea. Patient notes a history of diverticulitis and believes he may be having a flareup. Home Medications Medication Instructions Recorded Confirmed Type aspirin 81 mg tablet,delayed 81 mg PO QAM 02/23/19 06/29/24 History release atenolol 50 mg tablet 50 mg PO QAM 02/23/19 06/29/24 History flecainide 50 mg tablet 50 mg PO BID 02/23/19 06/29/24 History gabapentin 800 mg tablet 800 mg PO TID 02/23/19 06/29/24 History levalbuterol HCl 1.25 mg/3 mL 1.25 mg inhalation TID PRN SOB 02/23/19 06/29/24 History solution for nebulization tiotropium bromide 2.5 1 puff inhalation QPM #4 grams 05/08/20 06/29/24 Rx mcg/actuation mist for inhalation (Spiriva Respimat) Incentive Spirometer #1 ea 04/11/21 06/20/24 Rx amitriptyline 25 mg tablet 25 mg PO HS 09/19/22 06/29/24 History meclizine 12.5 mg tablet 12.5 mg PO TID PRN Vertigo 09/19/22 06/29/24 History albuterol sulfate 90 mcg/actuation 2 inh inhalation Q4H PRN Wheezing 06/20/24 06/29/24 History breath activated powder inhaler allopurinol 300 mg tablet 300 mg PO PM 06/20/24 06/29/24 History cyclobenzaprine 10 mg tablet 10 mg PO TID PRN Spasms 06/20/24 06/29/24 History meloxicam 15 mg tablet 15 mg PO QAM 06/20/24 06/29/24 History Allergies Allergy/AdvReac Type Severity Reaction Status Date / Time adhesive Allergy Unknown EKG Verified 06/29/24 12:16 MONITOR PADS-RED RASH ITCHY,BLISTERS meperidine Allergy Unknown nausea and Verified 06/29/24 12:16 vomiting albuterol AdvReac Unknown TACHYCARDIA Verified 06/29/24 12:16 Past Med/Surg History Problem List (Updated 02/14/25 @ 16:23 by DELROY Cruz) Diverticulitis (Acute) Acute diverticulitis History of colon polyps Encounter for pre-operative examination Arthritis of left shoulder region Febrile Anosmia Oropharyngeal lesion Acute bronchitis Post-thoracotomy pain Hx of bronchitis Abnormal CT scan, lung Chest pain Pulmonary nodule SOB (shortness of breath) Cough COPD (chronic obstructive pulmonary disease) 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 Does have SOB/anxiety with laying flat on back Medical History Gout 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 COPD (chronic obstructive pulmonary disease) Breathing stable Surgical History Hx of left knee surgery Hx of foot surgery right Hx of laminectomy cervical C3-7 > ROM turning to left side very limited, looking up is also difficult gets dizzy History of hand surgery Tendon repair of left hand History of lung surgery FIBROUS TUMOR-03/2019?-RIGHT SIDE History of hand surgery (~1995) BL cyst removal S/P plication of diaphragm (~10/2008) [facility] 2008 History of anesthesia reaction PATIENT REPORTS HYPOTENSION -- 2014 RCR @ [facility] RECORD SHOWS BP WNL INTRA-OP AND IN PACU. History of tonsillectomy (~1966) History of surgical removal of ganglion cyst History of shoulder surgery bilat History of right knee surgery (~1988) History of esophagogastroduodenoscopy (EGD) History of colonoscopy History of bronchoscopy Status post placement of implantable loop recorder since removed History of spinal surgery LUMBAR SPINE X 2 2011, 2013 Nausea and vomiting after administration of anesthetic agent Family History Father Family hx of colon cancer Heart disease Mother Stroke Heart disease Social History Smoking Status: Never smoker Second Hand Exposure: No; Do You Dip or Chew Tobacco: No (remote hx); Hx Alcohol Use: Yes Alcohol type: beer and wine Hx Substance Use: No Preferred Language: Portuguese Communication Ability: Effective Seismometer Operator Required: No Beliefs That Will Affect Care: None marital status: Current Living Situation: Spouse current occupational status: 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 Safe at Home: Yes Assistive Devices: Glasses Physical Exam Vital Signs Vital Signs - 24 hr 02/14/25 11:39 02/14/25 12:00 02/14/25 12:49 Temperature 36.4 C L Temperature Source Temporal Artery Scan Pulse Rate 69 66 65 Pulse Rate [Apical] Pulse Strength Normal Respiratory Rate 18 16 Respiratory Effort / Characteristics Non-Labored Spontaneous Respiratory Depth Normal Respiratory Pattern Regular Blood Pressure 144/78 H Blood Pressure [Right Arm] Blood Pressure Mean 100 Blood Pressure Mean [Right Arm] Blood Pressure Position Sitting Blood Pressure Position [Right Arm] Pulse Oximetry 94 96 Oxygen Delivery Method Room Air Room Air Sepsis Recent Fever Within 48 Hours No Sepsis New/Unexplained Change in Mental Status No Sepsis Action Taken by Nursing No Action Required 02/14/25 13:56 02/14/25 15:00 Temperature Temperature Source Pulse Rate Pulse Rate [Apical] 61 61 Pulse Strength Respiratory Rate 16 13 Respiratory Effort / Characteristics Non-Labored Spontaneous Non-Labored Spontaneous Respiratory Depth Normal Respiratory Pattern Blood Pressure Blood Pressure [Right Arm] 137/79 130/75 Blood Pressure Mean Blood Pressure Mean [Right Arm] 98 93 Blood Pressure Position Blood Pressure Position [Right Arm] Semi-fowlers Pulse Oximetry 98 95 Oxygen Delivery Method Room Air Room Air Sepsis Recent Fever Within 48 Hours Sepsis New/Unexplained Change in Mental Status Sepsis Action Taken by Nursing VITAL SIGNS - Vital signs and nursing notes were reviewed. GENERAL -64-year-old male appearing his stated age who is in no acute distress. Communicates well with provider and answers questions appropriately. HEAD - NC/AT. EYES - PERRL with EOMI bilaterally. Conjunctiva pink and moist with no injection noted. LUNGS - Chest wall symmetric without accessory muscle use, intercostals retractions, or central cyanosis. Breath sounds clear throughout all corona. No wheezes, rales, or rhonchi appreciated. CARDIAC - RRR with S1/S2. No murmur, rubs, or gallops appreciated. ABDOMEN - Abdominal contour without pulsations or visible masses. Negative Potrero's or Pepe Romero's Signs. BS normoactive all four quadrants. Mildly increased tenderness to palpation appreciated in the lower abdomen. No guarding. No rebound Tenderness. No palpable masses, hepatosplenomegaly, or ascites noted. NEUROLOGIC - Sensory intact to light touch throughout. PSYCH - A&Ox3 and cooperates fully with examiner. Pt is very pleasant and interacts well with examiner. Course Administered Medications Discontinued Medications Sodium Chloride (Nss) 1,000 mls @ 999 mls/hr IV .Q1H1M ONE Stop: 02/14/25 13:17 Last Infusion: 02/14/25 15:54 Dose: Infused Documented By: Admin: 02/14/25 12:39 Dose: 999 mls/hr Documented By: PUMA Metronidazole (Flagyl) 500 mg in 100 mls @ 100 mls/hr IV NOW STA; Protocol Stop: 02/14/25 16:00 Last Admin: 02/14/25 15:56 Dose: 100 mls/hr Documented By: IRIS Ceftriaxone Sodium (Rocephin) 1,000 mg in 50 mls @ 100 mls/hr IV NOW STA Stop: 02/14/25 15:30 Last Infusion: 02/14/25 15:54 Dose: Infused Documented By: Admin: 02/14/25 15:21 Dose: 100 mls/hr Documented By: CC Ioversol (Optiray 320 100ml) 93 ml IV ONCE ONE Stop: 02/14/25 13:34 Last Admin: 02/14/25 13:33 Dose: 93 ml Documented By: LIBERTAD Morphine Sulfate (Morphine Sulfate 4 Mg/Ml 1 Ml Carp\Vial) 4 mg IV NOW STA Stop: 02/14/25 12:18 Last Admin: 02/14/25 12:37 Dose: 4 mg Documented By: PUMA Morphine Sulfate (Morphine Sulfate 4 Mg/Ml 1 Ml Carp\Vial) 4 mg IV NOW STA Stop: 02/14/25 14:22 Last Admin: 02/14/25 15:03 Dose: 4 mg Documented By: ELBERT Ondansetron HCl (Ondansetron Inj 2 Mg/Ml 2 Ml Vial) 4 mg IV NOW STA Stop: 02/14/25 12:18 Last Admin: 02/14/25 12:37 Dose: 4 mg Documented By: PUMA Medical Decision Making Differential Diagnosis Differential diagnoses includes gastritis, gastroenteritis, IBS, small bowel obstruction, pancreatitis, peritonitis, constipation, abdominal abcess, diverticulitis, among others. Medical Records Attestation: I reviewed the patient's medical records. Home Medications was personally reviewed by me Laboratory Data Attestation: I reviewed the patient's lab results. 02/14/25 12:02 02/14/25 12:02 Lab Results 02/14/25 Range/Units 12:02 WBC 11.45 H (4.8-10.8) K/ul RBC 4.84 (4.70-6.10) M/uL Hgb 15.8 (14.0-18.0) g/dl Hct 46.7 (42.0-52.0) % MCV 96.5 (80.0-100.0) fL MCH 32.6 (25.0-34.0) pg MCHC 33.8 (32.0-36.0) g/dL RDW Std Deviation 43.5 (36.4-46.3) fL RDW Coeff of Berta 12.3 (11.5-14.5) % Plt Count 241 (130-400) K/uL MPV 9.9 (9.4-12.4) fL Immature Gran % (Auto) 0.3 % Neut % (Auto) 69.6 % Lymph % (Auto) 17.5 % Calhoun % (Auto) 10.3 % Eos % (Auto) 1.5 % Baso % (Auto) 0.8 % Neut # (Auto) 7.97 H (1.40-6.50) K/uL Lymph # (Auto) 2.00 (1.20-3.40) K/uL Calhoun # (Auto) 1.18 H (0.11-0.59) K/uL Eos # (Auto) 0.17 (0.00-0.50) K/uL Baso # (Auto) 0.09 (0.00-0.20) K/uL Immature Gran # (Auto) 0.04 (0.01-0.20) K/uL Sodium 138 (136-145) mmol/L Potassium 4.0 (3.5-5.1) mmol/L Chloride 103 (98-107) mmol/L Carbon Dioxide 26 (21-32) mmol/L Anion Gap 9 (3-11) BUN 9 (6-23) mg/dl Creatinine 0.87 (0.6-1.4) mg/dl Est Cr Clr Drug Dosing 98.9 ml/min eGFR 96.96 BUN/Creatinine Ratio 10.3 (10-20) Glucose 100 H (70-99(Fasting)) mg/dl Calcium 9.2 (8.6-10.3) mg/dl Total Bilirubin 1.0 (0.2-1.0) mg/dl AST 18 (13-39) U/L ALT 17 (7-52) U/L Alkaline Phosphatase 75 (34-104) U/L Total Protein 8.1 (6.0-8.3) gm/dl Albumin 4.4 (3.4-5.0) gm/dl Globulin 3.7 (2.5-4.0) gm/dl Albumin/Globulin Ratio 1.2 (0.9-2) Lipase 33 (11-82) U/L Urine Color Yellow Urine Appearance Clear (Clear) Urine pH 6.0 (4.5-7.5) Ur Specific [place] 1.011 (1.000-1.030) Urine Protein Negative (Negative) Urine Glucose (UA) Negative (Negative) Urine Ketones Negative (Negative) Urine Blood Negative (Negative) Urine Nitrite Negative (Negative) Urine Bilirubin Negative (Negative) Urine Urobilinogen Negative (Negative) Ur Leukocyte Esterase Negative (Negative) Urine Comment Imaging Data Radiologist's Impression: Abdomen/Pelvis CT 02/14/25 11:46 CT SCAN OF THE ABDOMEN AND PELVIS WITH IV CONTRAST CLINICAL HISTORY: Abdominal pain. COMPARISON STUDY: CT of the abdomen May 04, 2019. MRI of the abdomen May 17, 2019. TECHNIQUE: Following the IV administration of 93 cc of Optiray 320, CT scan of the abdomen and pelvis is performed from the lung bases to the proximal femora. Images are reviewed in the axial, sagittal, and coronal planes. IV contrast was administered without complication. A dose lowering technique was utilized adhering to the principles of ALARA. CT DOSE: 1445.77 mGy.cm FINDINGS: Multiple calcified nodules along the right diaphragmatic pleura are unchanged since prior CT. These are benign and may be related to prior pleurodesis. There is hepatic steatosis. Geographic increased attenuation within the medial segment left hepatic lobe was present on prior exam. This favors fatty sparing. Bilateral renal lesions are suggestive of cysts. This includes a 1.9 cm peripherally calcified cystic lesion within the lower pole of the left kidney. These are unchanged. Spleen, adrenal glands and pancreas are unremarkable. There is no evidence for a bowel obstruction. Extensive colonic diverticulosis. Circumferential wall thickening of the distal descending colon with moderate associated inflammation is present. There is no free air or abscess. An inflamed diverticulum is noted. No additional sites of inflammation are identified. Major vasculature is patent. IMPRESSION: 1. Acute diverticulitis of the distal descending colon. Moderate inflammation. No free air or abscess. 2. Hepatic steatosis with geographic sparing within the medial segment of the left hepatic lobe. 3. Multiple renal cysts. ACT 112: Negative or not required by law. Electronically signed by: Kosta Pineda M.D. 02/14/2025 1:48 PM [facility] Narrative Patient is a 64-year-old male who presents to the emergency department with complaints of abdominal pain. Patient states that he has had some lower primarily left-sided abdominal pain since last evening and notes some associated diarrhea and nausea. Patient notes a history of diverticulitis and believes he may be having a flareup. Patient was evaluated by myself and findings were noted in the physical exam above. Patient was ordered IV placement, lab work, urinalysis, and a CT of the abdomen pelvis. Patient's lab work resulted with an elevated white blood cell count of 11.45. Patient had no indication of anemia with a hemoglobin of 15.8 and hematocrit of 46.7. Patient had no significant electrolyte imbalance noted. Patient's urinalysis was not indicative of infection. Patient was ordered a dose of morphine and Zofran for his discomfort as well as a liter of normal saline. Upon reevaluation the patient was still having some significant pain and was ordered a subsequent dose of morphine. Patient CT was completed and interpreted by radiology to show acute diverticulitis of the distal descending colon with moderate inflammation. There is no free air or abscess noted. I discussed this finding with the patient who verbalized understanding. Patient states that he was pretty confident that his symptoms were due to an acute diverticulitis flareup as he is experienced this before. I discussed with the patient that since his white blood cell count was not significantly elevated and his vital signs been stable with no noted fever since he has been here it would be reasonable for outpatient treatment with oral antibiotics because of his history with hospitalization for almost 2 weeks when he has had diverticulitis flareups in the past that it may be beneficial for him to be monitored in the hospital. Patient states he does not feel comfortable with outpatient treatment because of his history of getting significantly sick quickly and would prefer staying in the hospital which I feel like is warranted. The patient also notes that after the second dose of morphine that he is having some relief of his pain however it increases quite a bit with movement. Patient was also ordered a and IV dose of Rocephin and Flagyl at this time. [facility] the hospital for further evaluation and management. I gave Dr. Chirinos a full report on this patient's chief complaint, current status and the results of imaging and lab work. Dr. Chirinos agreed to admit the patient under her service for further evaluation and management of his diverticulitis. [facility] for further evaluation and management of this patient. Impression Diverticulitis Discharge Plan Visit Data Chief Complaint: Abdominal Pain Stated Complaint: DIVERTICULITIS, LOWER LT ABD PAIN ED Provider: [facility] Mccloud ED Midlevel Provider: Jovita Mendoza Discharge Problem: Diverticulitis Patient Disposition: Admitted As Inpatient Condition: Fair Forms Stand Alone Forms: [facility] Prescriptions Prescriptions: No Action (DME) Incentive Spirometer Misc See Rx Instructions .Route Qty: 1 0RF Rx Instructions: Use multiple times daily or as directed. Spiriva Respimat 2.5 mcg/actuation mist 1 puff INHALATION QPM Qty: 4 5RF meclizine 12.5 mg tablet 12.5 mg PO TID PRN (Reason: Vertigo) amitriptyline 25 mg tablet 25 mg PO HS aspirin 81 mg Tablet,Delayed Release (Dr/Ec) 81 mg PO QAM gabapentin 800 mg Tablet 800 mg PO TID flecainide 50 mg Tablet 50 mg PO BID levalbuterol HCl 1.25 mg/3 mL Solution For Nebulization 1.25 mg INHALATION TID PRN (Reason: SOB) atenolol 50 mg Tablet 50 mg PO QAM meloxicam 15 mg Tablet 15 mg PO QAM allopurinol 300 mg Tablet 300 mg PO PM cyclobenzaprine 10 mg Tablet 10 mg PO TID PRN (Reason: Spasms) albuterol sulfate 90 mcg/actuation Aerosol Powdr Breath Activated 2 inh INHALATION Q4H PRN (Reason: Wheezing) Referrals Referrals: Alvaro De Los Santos [Primary Care Provider] - ED DC CONDITION Conditon at Discharge Condition at Discharge: Fair
[2025-02-14 12:18] LABS: Basophils # (auto) 0.09 K/uL (0.00-0.20); Basophils % (auto) 0.8 %; Eosinophils # (auto) 0.17 K/uL (0.00-0.50); Eosinophils % (auto) 1.5 %; Hematocrit (blood only) 46.7 % (42.0-52.0); Hemoglobin 15.8 g/dl (14.0-18.0); Immature Granulocytes # (auto) 0.04 K/uL (0.01-0.20); Immature Granulocytes % (auto) 0.3 %; Lymphocytes % (auto) 17.5 %; Mean Corpuscular Hemoglobin 32.6 pg (25.0-34.0); Mean Corpuscular Hgb Conc 33.8 g/dL (32.0-36.0); Mean Corpuscular Volume 96.5 fL (80.0-100.0); Mean Platelet Volume 9.9 fL (9.4-12.4); Monocytes # (auto) 1.18 K/uL (0.11-0.59); Monocytes % (auto) 10.3 %; Neutrophils # (auto) 7.97 K/uL (1.40-6.50); Neutrophils % (auto) 69.6 %; Platelet Count 241 K/uL (130-400); RDW Coefficient of Variation 12.3 % (11.5-14.5); RDW Standard Deviation 43.5 fL (36.4-46.3); Red Blood Count 4.84 M/uL (4.70-6.10); White Blood Count 11.45 K/ul (4.8-10.8)
[2025-02-14 12:19] LABS: Appearance Urine Clear (Clear); Bilirubin Urine Negative (Negative); Blood Urine Negative (Negative); Color Urine Yellow; Glucose Urine UA Negative (Negative); Ketones Urine Negative (Negative); Leukocyte Esterase Urine Negative (Negative); Nitrite Urine Negative (Negative); Protein Urine Negative (Negative); Specific Gravity Urine 1.011 (1.000-1.030); Urobilinogen Urine Negative (Negative)
[2025-02-14] MEDS: MoRPHine SULFATE 4 MG/ML 1 ML CARP\\VIAL IV STA ×3 (12:37→16:16)
[2025-02-14] MEDS: ONDANSETRON INJ 2 MG/ML 2 ML VIAL IV STA (12:37)
[2025-02-14] MEDS: SODIUM CHLORIDE 0.9% 1,000 ML IV ONE (12:39)
[2025-02-14 12:46] LABS: Albumin Globulin Ratio 1.2 (0.9-2); Albumin Level 4.4 gm/dl (3.4-5.0); BUN Creatinine Ratio 10.3 (10-20); Calcium 9.2 mg/dl (8.6-10.3); Creatinine Clr Calc Pharmacy 98.9 ml/min; Globulin 3.7 gm/dl (2.5-4.0); Total Protein 8.1 gm/dl (6.0-8.3)
[2025-02-14] MEDS: OPTIRAY 320 100ml IV ONE (13:33)
--- NOTE | 2025-02-14 13:50 | CT Scan Report ---
CT SCAN OF THE ABDOMEN AND PELVIS WITH IV CONTRAST CLINICAL HISTORY: Abdominal pain. COMPARISON STUDY: CT of the abdomen May 04, 2019. MRI of the abdomen May 17, 2019. TECHNIQUE: Following the IV administration of 93 cc of Optiray 320, CT scan of the abdomen and pelvis is performed from the lung bases to the proximal femora. Images are reviewed in the axial, sagittal, and coronal planes. IV contrast was administered without complication. A dose lowering technique was utilized adhering to the principles of ALARA. CT DOSE: 1445.77 mGy.cm FINDINGS: Multiple calcified nodules along the right diaphragmatic pleura are unchanged since prior C T. These are benign and may be related to prior pleurodesis. There is hepatic steatosis. Geographic i ncreased attenuation within the medial segment left hepatic lobe was present on prior exam. This favo rs fatty sparing. Bilateral renal lesions are suggestive of cysts. This includes a 1.9 cm peripherall y calcified cystic lesion within the lower pole of the left kidney. These are unchanged. Spleen, adre nal glands and pancreas are unremarkable. There is no evidence for a bowel obstruction. Extensive col onic diverticulosis. Circumferential wall thickening of the distal descending colon with moderate ass ociated inflammation is present. There is no free air or abscess. An inflamed diverticulum is noted. No additional sites of inflammation are identified. Major vasculature is patent. IMPRESSION: 1. Acute diverticulitis of the distal descending colon. Moderate inflammation. No free air or abscess . 2. Hepatic steatosis with geographic sparing within the medial segment of the left hepatic lobe. 3. Multiple renal cysts. ACT 112: Negative or not required by law. Electronically signed by: Kosta Pineda M.D. 02/14/2025 1:48 PM
[2025-02-14] MEDS: cefTRIAXone SODIUM 1,000 MG/50 ML BAG IV STA (15:21)
--- NOTE | 2025-02-14 15:31 | History & Physical Report ---
Date of Service February 14, 2025 Assessment & Plan (1) Acute diverticulitis: (2) Atrial fibrillation: (3) COPD (chronic obstructive pulmonary disease): (4) Hypertension: Plan This patient is a 64-year-old male with history of COPD, restrictive lung disease with paralyzed right hemidiaphragm, gout, paroxysmal atrial fibrillation, chronic neck and lower back pain, who presents to the ER with left lower quadrant abdominal pain x 2 days with some associated small, frequent soft stools and nausea with vomiting. He has been unable to keep fluids or solids down over the last 2 days except for small amount of chicken broth. He has a history of diverticulitis over 20 years ago of a severe diverticulitis which required a prolonged hospital stay. In the ED, his vital signs were normal and he had a mild leukocytosis at 11 but otherwise labs fairly unremarkable. His CT abdomen/pelvis did show a distal descending colitis with diverticulitis. He was given IV ceftriaxone and Flagyl and IV fluids as well as multiple doses of IV pain medication. He will be admitted for acute uncomplicated diverticulitis #Acute descending colon diverticulitis-here with acute uncomplicated diverticulitis but unable to tolerate p.o. with N/B and severe pain requiring IV narcotics. Colonoscopy in 05/2024 with diverticulosis and a sessile serrated adenoma in the cecum and hyperplastic polyp from the rectum removed. With mild leukocytosis but no fever or signs of sepsis. - Admit to medical floor with telemetry given history of paroxysmal A-fib - Continue antibiotics with IV ceftriaxone and IV metronidazole - Keep n.p.o. except for ice chips and small sips with oral medications for bowel rest - Start LR at 80 mL/h while n.p.o. - Continue morphine 4 mg IV every 4 hours as needed moderate to severe pain and Tylenol as needed for milder pain - IV Zofran as needed for nausea - Follow CBC, BMP, magnesium in the morning #COPD/restrictive lung disease-with paralyzed right hemidiaphragm-no acute issues. 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 Is status post fundoplication of the right diaphragm - Continue maintenance inhaler or formulary equivalent with ICS/LABA - Levalbuterol as needed #Paroxysmal atrial fibrillation-he has had a couple of episodes of A-fib over the years but was told he does not need anticoagulation due to low CHADS2 score. Follows with cardiology. He is in regular rhythm on examination here and remains on flecainide as an antiarrhythmic. - Continue flecainide - Monitor on telemetry - Keep electrolytes replete/optimal - Continue aspirin #Gout-no acute issues, takes sulindac as needed for acute flares - Continue allopurinol #Chronic pain in neck and back-has had numerous surgeries all laminectomies in the C-spine and L-spine over the years and deals with chronic pain. 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 He has been unable to keep fluids or solids down over the last 2 days except for small amount of chicken broth. He has a history of diverticulitis over 20 years ago of a severe diverticulitis which required a prolonged hospital stay. In the ED, his vital signs were normal and he had a mild leukocytosis at 11 but otherwise labs fairly unremarkable. His CT abdomen/pelvis did show a distal descending colitis with diverticulitis. He was given IV ceftriaxone and Flagyl and IV fluids as well as multiple doses of IV pain medication. He will be admitted for acute uncomplicated diverticulitis Allergies Allergy/AdvReac Type Severity Reaction Status Date / Time adhesive Allergy Unknown EKG Verified 06/29/24 12:16 MONITOR PADS-RED RASH ITCHY,BLISTERS meperidine Allergy Unknown nausea and Verified 06/29/24 12:16 vomiting albuterol AdvReac Unknown TACHYCARDIA Verified 06/29/24 12:16 Home Medications Medication Instructions Recorded Confirmed Type aspirin 81 mg tablet,delayed 81 mg PO QAM 02/23/19 06/29/24 History release atenolol 50 mg tablet 25 mg PO QAM 02/23/19 06/29/24 History flecainide 50 mg tablet 50 mg PO BID 02/23/19 06/29/24 History gabapentin 800 mg tablet 800 mg PO TID 02/23/19 06/29/24 History levalbuterol HCl 1.25 mg/3 mL 1.25 mg inhalation TID PRN SOB 02/23/19 06/29/24 History solution for nebulization tiotropium bromide 2.5 1 puff inhalation QPM #4 grams 05/08/20 06/29/24 Rx mcg/actuation mist for inhalation (Spiriva Respimat) Incentive Spirometer #1 ea 04/11/21 06/20/24 Rx meclizine 12.5 mg tablet 12.5 mg PO TID PRN Vertigo 09/19/22 06/29/24 History albuterol sulfate 90 mcg/actuation 2 inh inhalation Q4H PRN Wheezing 06/20/24 06/29/24 History breath activated powder inhaler allopurinol 300 mg tablet 300 mg PO PM 06/20/24 06/29/24 History cyclobenzaprine 10 mg tablet 10 mg PO TID PRN Spasms 06/20/24 06/29/24 History meloxicam 15 mg tablet 15 mg PO QAM 06/20/24 06/29/24 History Past Med/Surg History Problem List (Updated 02/14/25 @ 16:23 by DELROY Cruz) Diverticulitis (Acute) Acute diverticulitis History of colon polyps Encounter for pre-operative examination Arthritis of left shoulder region Febrile Anosmia Oropharyngeal lesion Acute bronchitis Post-thoracotomy pain Hx of bronchitis Abnormal CT scan, lung Chest pain Pulmonary nodule SOB (shortness of breath) Cough COPD (chronic obstructive pulmonary disease) 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 Does have SOB/anxiety with laying flat on back Medical History Gout 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 History of tonsillectomy (~1966) History of surgical removal of ganglion cyst History of shoulder surgery bilat History of right knee surgery (~1988) History of esophagogastroduodenoscopy (EGD) History of colonoscopy History of bronchoscopy Status post placement of implantable loop recorder since removed History of spinal surgery LUMBAR SPINE X 2 2011, 2013 Nausea and vomiting after administration of anesthetic agent Family History Father Family hx of colon cancer Heart disease Mother Stroke Heart disease Social History Smoking Status: Never smoker Second Hand Exposure: No; Do You Dip or Chew Tobacco: No (remote hx); Hx Alcohol Use: Yes Alcohol type: beer and wine Hx Substance Use: No Preferred Language: Nigerian Communication Ability: Effective 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 Beliefs That Will Affect Care: None marital status: Current Living Situation: Spouse current occupational status: 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 Safe at Home: Yes Assistive Devices: Glasses Review of Systems Review of Systems: All systems reviewed & are unremarkable except as noted in HPI & below Physical Exam Constitutional: WD/WN, vitals as above Eyes: PERRL, conjunctivae normal, anicteric sclerae ENMT: external ear and nose normal, oropharynx normal Neck: trachea midline, no thyromegaly Respiratory: normal respiratory effort, lungs clear to auscultation Cardiovascular: RRR, no murmur, no edema Chest (Breasts): Chest: normal inspection of chest Gastrointestinal (Abdomen): Inspection/Auscultation: abdomen normal to inspection and normal bowel sounds; abdomen not distended Percussion/Palpation: + abdomen tender (In LLQ with voluntary guarding, no rebound) and abdomen soft Musculoskeletal: Extremities: extremities normal to inspection; no cyanosis and no clubbing Skin: no rashes, warm and dry Neurologic: moves all extremities and awake; no focal motor deficits Psychiatric: A+Ox3, euthymic affect Lymphatic: no lymphedema Results & Data Results & Data Vital Signs (Past 12 Hours) Vital Signs Temp Pulse Pulse Resp BP BP Pulse Ox 02/14/25 15:00 61 13 130/75 95 02/14/25 13:56 61 16 137/79 98 02/14/25 12:49 65 02/14/25 12:00 66 16 96 02/14/25 11:39 36.4 C L 69 18 144/78 H 94 O2 Del Method 02/14/25 15:00 Room Air 02/14/25 13:56 Room Air 02/14/25 12:49 02/14/25 12:00 Room Air 02/14/25 11:39 Room Air Laboratory Results CBC, BMP, LFTs, lipase, UA reviewed Diagnostic Findings CT A/P images personally reviewed by me and agree with the following report: Abdomen/Pelvis CT 02/14/25 11:46 CT SCAN OF THE ABDOMEN AND PELVIS WITH IV CONTRAST CLINICAL HISTORY: Abdominal pain. COMPARISON STUDY: CT of the abdomen May 04, 2019. MRI of the abdomen May 17, 2019. TECHNIQUE: Following the IV administration of 93 cc of Optiray 320, CT scan of the abdomen and pelvis is performed from the lung bases to the proximal femora. Images are reviewed in the axial, sagittal, and coronal planes. IV contrast was administered without complication. A dose lowering technique was utilized adhering to the principles of ALARA. CT DOSE: 1445.77 mGy.cm FINDINGS: Multiple calcified nodules along the right diaphragmatic pleura are unchanged since prior CT. These are benign and may be related to prior pleurodesis. There is hepatic steatosis. Geographic increased attenuation within the medial segment left hepatic lobe was present on prior exam. This favors fatty sparing. Bilateral renal lesions are suggestive of cysts. This includes a 1.9 cm peripherally calcified cystic lesion within the lower pole of the left kidney. These are unchanged. Spleen, adrenal glands and pancreas are unremarkable. There is no evidence for a bowel obstruction. Extensive colonic diverticulosis. Circumferential wall thickening of the distal descending colon with moderate associated inflammation is present. There is no free air or abscess. An inflamed diverticulum is noted. No additional sites of inflammation are identified. Major vasculature is patent. IMPRESSION: 1. Acute diverticulitis of the distal descending colon. Moderate inflammation. No free air or abscess. 2. Hepatic steatosis with geographic sparing within the medial segment of the left hepatic lobe. 3. Multiple renal cysts. Code Status & VTE Plan Code Status Full code VTE Prophylaxis Plan VTE Prophylaxis will be ordered: Yes PG Care Time/CCT Total # of Minutes Spent Total Time Spent with Patient: Total time spent is greater than 50% in coordination of care (as documented) at patient's floor/unit and/or counseling patient: Coding Level of Care Code 50620 INT INP/OBS CARE 375MIN Diagnoses Acute diverticulitis K57.92 Atrial fibrillation I48.91 COPD (chronic obstructive pulmonary disease) J44.9 Hypertension I10
[2025-02-14] MEDS: metroNIDAZOLE 500 MG/100 ML BAG IV STA (15:56)
[2025-02-14] MEDS ORDERED: LEVALBUTEROL 1.25 MG/3 ML NEB INH PRN (18:18)
[2025-02-14] MEDS ORDERED: MECLIZINE 12.5 MG TAB PO PRN (18:18)
[2025-02-14] MEDS ORDERED: ONDANSETRON INJ 2 MG/ML 2 ML VIAL IV PRN (18:18)
[2025-02-14] MEDS ORDERED: ALBUTEROL HFA 8 GM INHALER INH PRN (18:21)
[2025-02-14] MEDS: LACTATED RINGER'S 1,000 ML IV SCH (18:50)
[2025-02-14] MEDS: MoRPHine SULFATE 4 MG/ML 1 ML CARP\\VIAL IV PRN (20:21)
[2025-02-14] MEDS: ENOXAPARIN INJ 40 MG/0.4 ML SYR SQ SCH (20:22)
[2025-02-14] MEDS: FLECAINIDE ACETATE 100 MG TABLET PO SCH (20:23)
[2025-02-14] MEDS: allopurinoL 300 MG TAB PO SCH (20:23)
[2025-02-14] MEDS: GABAPENTIN 800 MG TAB PO SCH (20:23)
[2025-02-14] MEDS: CYCLOBENZAPRINE HCL 10 MG TAB PO PRN (22:17)
[2025-02-15] MEDS: metroNIDAZOLE 500 MG/100 ML BAG IV SCH (00:16)
[2025-02-15 06:36] LABS: Basophils # (auto) 0.08 K/uL (0.00-0.20); Basophils % (auto) 1.2 %; Eosinophils # (auto) 0.13 K/uL (0.00-0.50); Eosinophils % (auto) 1.9 %; Hematocrit (blood only) 39.3 % (42.0-52.0); Hemoglobin 13.3 g/dl (14.0-18.0); Immature Granulocytes # (auto) 0.02 K/uL (0.01-0.20); Immature Granulocytes % (auto) 0.3 %; Lymphocytes # (auto) 1.78 K/uL (1.20-3.40); Lymphocytes % (auto) 26.4 %; Mean Corpuscular Hemoglobin 32.9 pg (25.0-34.0); Mean Corpuscular Hgb Conc 33.8 g/dL (32.0-36.0); Mean Corpuscular Volume 97.3 fL (80.0-100.0); Monocytes # (auto) 0.71 K/uL (0.11-0.59); Monocytes % (auto) 10.5 %; Neutrophils # (auto) 4.03 K/uL (1.40-6.50); Neutrophils % (auto) 59.7 %; Platelet Count 199 K/uL (130-400); RDW Coefficient of Variation 12.2 % (11.5-14.5); RDW Standard Deviation 43.9 fL (36.4-46.3); Red Blood Count 4.04 M/uL (4.70-6.10); White Blood Count 6.75 K/ul (4.8-10.8)
[2025-02-15] MEDS: MELOXICAM 7.5 MG TAB PO SCH (08:20)
[2025-02-15] MEDS: FLUTICASONE/VILANTEROL 100/25MCG 14 PUFFS/INHALER INH SCH (08:21)
[2025-02-15] MEDS: ASPIRIN 81 MG ECTAB PO SCH (08:23)
[2025-02-15] MEDS: ACETAMINOPHEN 325 MG TAB PO PRN (08:23)
[2025-02-15] MEDS: ATENOLOL 25 MG TABLET PO SCH (08:24)
[2025-02-15 09:18] LABS: Calcium 8.5 mg/dl (8.6-10.3); Potassium 3.9 mmol/L (3.5-5.1)
[2025-02-15 09:24] LABS: Creatinine Clr Calc Pharmacy 97.3 ml/min
[2025-02-15] MEDS: cefTRIAXone SODIUM 2,000 MG/50 ML BAG IV SCH (15:12)
--- NOTE | 2025-02-15 23:38 | Hospitalist Progress Note ---
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 He has been unable to keep fluids or solids down over the last 2 days except for small amount of chicken broth. He has a history of diverticulitis over 20 years ago of a severe diverticulitis which required a prolonged hospital stay. In the ED, his vital signs were normal and he had a mild leukocytosis at 11 but otherwise labs fairly unremarkable. His CT abdomen/pelvis did show a distal descending colitis with diverticulitis. He was given IV ceftriaxone and Flagyl and IV fluids as well as multiple doses of IV pain medication. He will be admitted for acute uncomplicated diverticulitis #Acute descending colon diverticulitis-here with acute uncomplicated diverticulitis but unable to tolerate p.o. with N/B and severe pain requiring IV narcotics. Colonoscopy in 05/2024 with diverticulosis and a sessile serrated adenoma in the cecum and hyperplastic polyp from the rectum removed. With mild leukocytosis but no fever or signs of sepsis. - Admit to medical floor with telemetry given history of paroxysmal A-fib - remains NPO - Start LR at 80 mL/h while n.p.o. - Continue morphine 4 mg IV every 4 hours as needed moderate to severe pain and Tylenol as needed for milder pain - WBC improving, but patient remains tender. Will conitnue above treatment. #COPD/restrictive lung disease-with paralyzed right hemidiaphragm-no acute issues. 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 Is status post fundoplication of the right diaphragm - Continue maintenance inhaler or formulary equivalent with ICS/LABA - Levalbuterol as needed #Paroxysmal atrial fibrillation-he has had a couple of episodes of A-fib over the years but was told he does not need anticoagulation due to low CHADS2 score. Follows with cardiology. He is in regular rhythm on examination here and remains on flecainide as an antiarrhythmic. - Continue flecainide - Monitor on telemetry - Keep electrolytes replete/optimal - Continue aspirin #Gout-no acute issues, takes sulindac as needed for acute flares - Continue allopurinol #Chronic pain in neck and back-has had numerous surgeries all laminectomies in the C-spine and L-spine over the years and deals with chronic pain. - Continue home gabapentin, meloxicam, and as needed Flexeril DVT prophylaxis-SCDs, Lovenox SQ chart review Admission and Anticipated Discharge Date Admission Date: February 14, 2025 Subjective Patient reports he continues to have pain in his right lower abdomen. Physical Exam Constitutional: WD/WN, vitals as above Neck: trachea midline, no thyromegaly Respiratory: normal respiratory effort, lungs clear to auscultation Gastrointestinal (Abdomen): Soft, no rebound tenderness TTP to RLQ Results & Data Results & Data Vital Signs (Past 12 Hours) Vital Signs Temp Pulse Pulse Resp BP Pulse Ox O2 Del Method 02/15/25 22:18 37.1 C 77 18 110/68 92 Room Air 02/15/25 19:29 37.2 C 71 18 124/74 94 Room Air 02/15/25 15:26 36.6 C 65 16 107/72 96 Room Air 02/15/25 13:00 67 PG Care Time/CCT Total # of Minutes Spent Total Time Spent with Patient: Total time spent is greater than 50% in coordination of care (as documented) at patient's floor/unit and/or counseling patient: Coding Level of Care Code 17832 SUB INP/OBS CARE 3/50MIN Diagnoses Acute diverticulitis K57.92 Atrial fibrillation I48.91 COPD (chronic obstructive pulmonary disease) J44.9 Hypertension I10
[2025-02-16 07:13] LABS: Hematocrit (blood only) 36.6 % (42.0-52.0); Hemoglobin 12.4 g/dl (14.0-18.0); Mean Corpuscular Hemoglobin 32.9 pg (25.0-34.0); Mean Corpuscular Hgb Conc 33.9 g/dL (32.0-36.0); Mean Corpuscular Volume 97.1 fL (80.0-100.0); Mean Platelet Volume 10.1 fL (9.4-12.4); Platelet Count 197 K/uL (130-400); RDW Coefficient of Variation 11.8 % (11.5-14.5); RDW Standard Deviation 42.4 fL (36.4-46.3); Red Blood Count 3.77 M/uL (4.70-6.10); White Blood Count 4.87 K/ul (4.8-10.8)
[2025-02-16 07:45] LABS: BUN Creatinine Ratio 9.9 (10-20); C Reactive Protein 7.8 mg/dl (0-0.5); Calcium 8.7 mg/dl (8.6-10.3); Creatinine Clr Calc Pharmacy 107.2 ml/min; Potassium 3.7 mmol/L (3.5-5.1)
--- NOTE | 2025-02-16 09:50 | Hospitalist Progress Note ---
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 He has been unable to keep fluids or solids down over the last 2 days except for small amount of chicken broth. He has a history of diverticulitis over 20 years ago of a severe diverticulitis which required a prolonged hospital stay. In the ED, his vital signs were normal and he had a mild leukocytosis at 11 but otherwise labs fairly unremarkable. His CT abdomen/pelvis did show a distal descending colitis with diverticulitis. He was given IV ceftriaxone and Flagyl and IV fluids as well as multiple doses of IV pain medication. He will be admitted for acute uncomplicated diverticulitis Admission and Anticipated Discharge Date Admission Date: February 14, 2025 Subjective Pt states his pain has improved. He is willing to tolerate a clear diet today. Review of Systems Review of Systems: CONST: Negative for fever, body aches and chills. HENT: Negative for neck pain/stiffness, headache, congestion, sore throat, swelling. EYES: Negative for discharge/pain or vision changes. RESP: Negative for cough/hemoptysis and shortness of breath. CV: Negative chest pain, difficulty breathing, palpitations. ABD: Negative pain, nausea, vomiting. : Negative increase frequency, dysuria, blood in urine or stool. MUSC: Negative for muscle aches, edema. SKIN: Negative rash, lesions/sores. NEURO: Negative headache, dizziness, weakness. Physical Exam Physical Exam: GENERAL APPEARANCE NAD, activity normal for age, well developed/ well nourished, no cyanosis, pallor, or diaphoresis. EYES lids/conjunctiva normal. EARS/NOSE/THROAT Mucous membranes moist, nares normal, lips/teeth normal uvula midline without oral pharyngeal erythema, exudate or swelling TMs normal bilaterally. No lymphangitis/lymphedema. HEAD/NECK normocephalic atraumatic, no facial trauma, neck is supple. RESPIRATORY respiratory effort normal, speaks in full sentences, no tripod position, no accessory muscle use. Lungs clear to auscultation without rhonchi, wheezes, rales CARDIAC Regular rate and rhythm, no edema. ABDOMINAL Soft, ND/NT. No evidence of fluid wave. No pulsatile masses on exam, rebound tenderness, Fajardo sign or pain over Mcburney's point. MUSCLES/EXTREMITIES No abnormal range of motion, no swelling. SKIN Warm, pink and dry. No rashes, dermatoses, petechiae or lesions. NEUROLOGICAL Speech is clear and appropriate. Normal level of consciousness. Gait and coordination are normal. 5/5 strength in all extremities. PSYCH Normal mood and affect. Judgement/competence is appropriate Results & Data Results & Data Vital Signs (Past 12 Hours) Vital Signs Temp Pulse Pulse Resp BP Pulse Ox O2 Del Method 02/16/25 07:39 36.5 C 75 16 135/85 94 Room Air 02/16/25 05:45 67 02/16/25 02:41 36.8 C 68 18 117/64 94 Room Air 02/15/25 22:45 Room Air 02/15/25 22:18 37.1 C 77 18 110/68 92 Room Air 02/15/25 21:48 72 PG Care Time/CCT Total # of Minutes Spent Total Time Spent with Patient: Total time spent is greater than 50% in coordination of care (as documented) at patient's floor/unit and/or counseling patient: Coding Level of Care Code 64956 SUB INP/OBS CARE 235MIN Diagnoses Acute diverticulitis K57.92 Atrial fibrillation I48.91 COPD (chronic obstructive pulmonary disease) J44.9 Hypertension I10
[2025-02-16 19:37] VITALS: RESP 18
[2025-02-17 08:23] VITALS: BP 139/87; TEMP 97.9; O2SAT 94
--- NOTE | 2025-02-17 11:06 | Discharge Summary ---
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 He has been unable to keep fluids or solids down over the last 2 days except for small amount of chicken broth. He has a history of diverticulitis over 20 years ago of a severe diverticulitis which required a prolonged hospital stay. In the ED, his vital signs were normal and he had a mild leukocytosis at 11 but otherwise labs fairly unremarkable. His CT abdomen/pelvis did show a distal descending colitis with diverticulitis. He was given IV ceftriaxone and Flagyl and IV fluids as well as multiple doses of IV pain medication. 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 He has been unable to keep fluids or solids down over the last 2 days except for small amount of chicken broth. He has a history of diverticulitis over 20 years ago of a severe diverticulitis which required a prolonged hospital stay. In the ED, his vital signs were normal and he had a mild leukocytosis at 11 but otherwise labs fairly unremarkable. His CT abdomen/pelvis did show a distal descending colitis with diverticulitis. He was given IV ceftriaxone and Flagyl and IV fluids as well as multiple doses of IV pain medication. He will be admitted for acute uncomplicated diverticulitis Discharge Exam GENERAL APPEARANCE NAD, activity normal for age, well developed/ well nourished, no cyanosis, pallor, or diaphoresis. EYES lids/conjunctiva normal. EARS/NOSE/THROAT Mucous membranes moist, nares normal, lips/teeth normal uvula midline without oral pharyngeal erythema, exudate or swelling TMs normal bilaterally. No lymphangitis/lymphedema. HEAD/NECK normocephalic atraumatic, no facial trauma, neck is supple. RESPIRATORY respiratory effort normal, speaks in full sentences, no tripod position, no accessory muscle use. Lungs clear to auscultation without rhonchi, wheezes, rales CARDIAC Regular rate and rhythm, no edema. ABDOMINAL Soft, ND/NT. No evidence of fluid wave. No pulsatile masses on exam, rebound tenderness, Fajardo sign or pain over Mcburney's point. MUSCLES/EXTREMITIES No abnormal range of motion, no swelling. SKIN Warm, pink and dry. No rashes, dermatoses, petechiae or lesions. NEUROLOGICAL Speech is clear and appropriate. Normal level of consciousness. Gait and coordination are normal. 5/5 strength in all extremities. PSYCH Normal mood and affect. Judgement/competence is appropriate Discharge Plan Discharge Items Patient Disposition: Home - Self-Care Reason For Visit: ACUTE DIVERTICULITIS Discharge Diagnosis: Diverticulitis Condition on Discharge: Fair Activity: Resume your previous activity Non-emergency contact: Primary Care Provider Call non-emergency contact if: you have any medication questions Follow-up/Referrals: Alvaro De Los Santos [Primary Care Provider] - Diet: Regular Addtl Attending Provider Instructions: Follow up with PMD in 2 weeks Pending Studies at Discharge: No Stand-Alone Forms: My [employer], Smoking Cessation Medications and DC Order Prescriptions: New metronidazole 500 mg tablet 500 mg PO TID Qty: 15 0RF Continued (DME) Incentive Spirometer Misc See Rx Instructions .Route Qty: 1 0RF Rx Instructions: Use multiple times daily or as directed. aspirin 81 mg Tablet,Delayed Release (Dr/Ec) 81 mg PO QAM gabapentin 800 mg Tablet 800 mg PO TID flecainide 50 mg Tablet 50 mg PO BID levalbuterol HCl 1.25 mg/3 mL Solution For Nebulization 1.25 mg INHALATION TID PRN (Reason: SOB) atenolol 50 mg Tablet 25 mg PO HS meloxicam 15 mg Tablet 15 mg PO QAM allopurinol 300 mg Tablet 300 mg PO PM Spiriva Respimat 2.5 mcg/actuation mist 1 puff INHALATION QAM Discharge Orders: Discharge Order (Routine); Ordered 02/17/25 Ordered By: Parminder Murrieta Admission Data Admit Date/Time: 02/14/25 16:28 Attending Provider: Parminder Murrieta Admit Provider: Irma Chirinos Primary Care Provider: Alvaro De Los Santos Other Providers: Irma Chirinos Hospital Stay Data Consultations 02/14/25 15:33 ED Decision to Admit Stat Diagnostic Imagining Performed 02/14/25 11:46 CT abd pelvis IV con only Stat Pending Results Patient Have Any Pending Studies at Discharge: No Discharge Instructions Given to Patient (Per Discharging Provider) Follow up with PMD in 2 weeks Total Time Total Time Spent Total Time Spent (In Minutes): 50 Coding Level of Care Code 61623 INP/OBS DISCH >30 MIN Diagnoses Acute diverticulitis K57.92 Atrial fibrillation I48.91 COPD (chronic obstructive pulmonary disease) J44.9 Hypertension I10
[2025-02-17 11:35] VITALS: PULSE 98
== END 2025-02-17 14:29 | disposition home or self-care (01) | DRG 392 ==
LOC: ED 11:37 → 2N 16:28 → SUATTDRO 16:28 → 2N 17:50
DX: M10.9 Gout, unspecified; M54.2 Cervicalgia; E66.9 Obesity, unspecified; K57.32 Diverticulitis of large intestine without perforation or abscess without bleeding; J44.9 Chronic obstructive pulmonary disease, unspecified; I10 Essential (primary) hypertension; I48.0 Paroxysmal atrial fibrillation; Z68.33 Body mass index [BMI] 33.0-33.9, adult; J98.6 Disorders of diaphragm; Z79.82 Long term (current) use of aspirin